=== PATIENT | male | born 1935 | race Caucasian/White ===

== ENCOUNTER → 2017-01-15 | Outpatient (REF) | payer BC ==
[~2017-01-15] MED LIST: /AUGM25TA PO; ATEN50TA2 PO
== END ==
LOC: M LABDRAWP 10:54
PROVIDERS: ATTEND Urology
DX: C61 Malignant neoplasm of prostate (principal)

== ENCOUNTER → 2017-01-15 | Outpatient (REF) | payer BC ==
[2017-01-15 11:07] LABS: BASO % 0.4 % (0.0-1.0); EOS # 0.2 K/mm3 (0.0-0.50); EOS % 3.2 % (0.0-3.0); LARGE UNSTAINED CELL # 0.1 K/mm3 (0.0-0.4); LARGE UNSTAINED CELL % 1.8 % (0.0-4.0); LYMPH # 1.1 K/mm3 (1.5-4.5); LYMPH % 14.2 % (24.0-44.0); MEAN CORPUSCULAR HGB CONC 33.2 g/dl (32.0-36.5); MEAN CORPUSCULAR VOLUME 96.6 fl (80.0-96.0); MONO # 0.5 K/mm3 (0.0-0.8); MONO % 6.8 % (0.0-5.0); NEUTROPHILS # 5.2 K/mm3 (1.8-7.7); NEUTROPHILS % 73.6 % (36.0-66.0); PLATELET COUNT, AUTOMATED 278 k/mm3 (150-450); RED CELL DISTRIBUTION WIDTH 13.4 % (11.5-14.5); WHITE BLOOD COUNT 7.1 K/mm3 (4.0-10.0)
[2017-01-15 11:28] LABS: ALBUMIN 3.6 GM/DL (3.2-5.2); ALBUMIN/GLOBULIN RATIO 1.16 (1.00-1.93); ALKALINE PHOSPHATASE 107 U/L (45-117); ALT/SGPT 33 U/L (12-78); ANION GAP 7 MEQ/L (8-16); AST/SGOT 29 U/L (15-37); BILIRUBIN,TOTAL 0.5 MG/DL (0.2-1.0); BLOOD UREA NITROGEN 22 MG/DL (7-18); CALCIUM LEVEL 9.3 MG/DL (8.8-10.2); CARBON DIOXIDE LEVEL 27 MEQ/L (21-32); CHLORIDE LEVEL 107 MEQ/L (98-107); CHOLESTEROL LEVEL 127 MG/DL (<200); GLOMERULAR FILTRATION RATE > 60.0 (>42); GLUCOSE, FASTING 103 MG/DL (83-110); POTASSIUM SERUM 4.7 MEQ/L (3.5-5.1); SODIUM LEVEL 141 MEQ/L (136-145); TOTAL PROTEIN 6.7 GM/DL (6.4-8.2); TRIGLYCERIDES LEVEL 52 MG/DL (<150)
[2017-01-17 00:07] LABS: BETA 2 MICROGLOBULIN 2.1 mg/L (0.6-2.4); FREE KAPPA LIGHT CHAINS SERUM 14.08 mg/L (3.30-19.40); FREE LAMBDA LIGHT CHAINS SERUM 55.26 mg/L (5.71-26.30); KAPPA/LAMBDA RATIO SERUM 0.25 (0.26-1.65)
== END ==
LOC: M SFHCPLAZ 08:21
PROVIDERS: ATTEND Family Medicine
DX: D47.2 Monoclonal gammopathy (principal); N18.3 Chronic kidney disease, stage 3 (moderate); R73.01 Impaired fasting glucose; E78.5 Hyperlipidemia, unspecified

== ENCOUNTER → 2017-01-22 | Outpatient (CLI) | payer BC ==
--- NOTE | 2017-01-23 07:27 | REP ---
Clinical: Prostate cancer. Technique: PA and lateral. Comparison: 10/09/2011. Findings: Mediastinum and cardiac silhouette are stable. Chronic changes primarily involving the right upper lung zone and left lower lung zone are suggested and similar to prior examination. No obvious, discrete, acute consolidation, effusion, or pneumothorax. Skeletal structures are intact and relatively normal for age. Impression: Chronic-appearing changes primarily involving the right upper lung zone and right lower lung zone. If the patient remains symptomatic consider chest CT for further investigation. Signed by Jose Hernandez MD 01/23/2017 07:18 A
--- NOTE | 2017-01-23 07:28 | REP ---
Clinical: Prostate cancer with pain . Technique: Frontal view of the chest with multiple views of the right hemithorax. Findings: Frontal view of the chest demonstrates no acute cardiopulmonary process. Multiple views of the right hemithorax demonstrates no obvious acute rib fracture or pathology. Impression: Normal right rib series Signed by Jose Hernandez MD 01/23/2017 07:19 A
== END ==
LOC: M RAD 09:45
PROVIDERS: ATTEND Family Medicine
DX: C61 Malignant neoplasm of prostate (principal)

== ENCOUNTER → 2017-07-17 | Outpatient (REF) | payer MEDICARE ==
[2017-07-17 10:23] LABS: BASO % 0.5 % (0.0-1.0); EOS # 0.1 10^3/uL (0.0-0.50); EOS % 1.8 % (0.0-3.0); IMMATURE GRANULOCYTE % 0.3 % (0-0); LYMPH # 0.9 10^3/uL (1.5-4.5); LYMPH % 12.9 % (24.0-44.0); MEAN CORPUSCULAR HGB CONC 32.8 g/dl (32.0-36.5); MEAN CORPUSCULAR VOLUME 97.5 fl (80.0-96.0); MONO # 0.6 10^3/uL (0.0-0.8); MONO % 8.4 % (0.0-5.0); NEUTROPHILS # 5.1 10^3/uL (1.8-7.7); NEUTROPHILS % 76.1 % (36.0-66.0); PLATELET COUNT, AUTOMATED 305 10^3/uL (150-450); WHITE BLOOD COUNT 6.7 10^3/uL (4.0-10.0)
[2017-07-17 10:47] LABS: ALBUMIN 3.5 GM/DL (3.2-5.2); ALBUMIN/GLOBULIN RATIO 1.09 (1.00-1.93); ALKALINE PHOSPHATASE 90 U/L (45-117); ALT/SGPT 25 U/L (12-78); ANION GAP 8 MEQ/L (8-16); AST/SGOT 17 U/L (7-37); BILIRUBIN,TOTAL 0.8 MG/DL (0.2-1.0); BLOOD UREA NITROGEN 22 MG/DL (7-18); CALCIUM LEVEL 9.5 MG/DL (8.8-10.2); CARBON DIOXIDE LEVEL 29 MEQ/L (21-32); CHLORIDE LEVEL 104 MEQ/L (98-107); CREATININE FOR GFR 1.28 MG/DL (0.70-1.30); FREE T4 0.91 NG/DL (0.76-1.46); GLOMERULAR FILTRATION RATE 57.6 (>35); GLUCOSE, FASTING 110 MG/DL (83-110); POTASSIUM SERUM 4.6 MEQ/L (3.5-5.1); SODIUM LEVEL 141 MEQ/L (136-145); TOTAL PROTEIN 6.7 GM/DL (6.4-8.2)
[2017-07-18 11:19] LABS: ALBUMIN 3.83 GM/DL (3.29-5.55); ALBUMIN % 57.1 % (55.8-66.1)
== END ==
LOC: M SFHCPLAZ 07:53
PROVIDERS: ATTEND Family Medicine
DX: D47.2 Monoclonal gammopathy (principal); E78.5 Hyperlipidemia, unspecified; R73.01 Impaired fasting glucose

== ENCOUNTER → 2017-07-25 | Outpatient (CLI) | payer MEDICARE | LOC: M LAB 08:06 | PROVIDERS: ATTEND Urology | DX: C61 Malignant neoplasm of prostate (principal) ==

== ENCOUNTER → 2018-03-18 | Outpatient (REF) | payer MEDICARE ==
[2018-03-18 12:26] LABS: BASO % 0.4 % (0.0-1.0); EOS # 0.2 10^3/uL (0.0-0.50); HEMATOCRIT 45.2 % (42.0-52.0); HEMOGLOBIN 15.2 g/dl (13.5-17.5); IMMATURE GRANULOCYTE % 0.1 % (0-3.0); LYMPH # 1.3 10^3/uL (1.5-4.5); LYMPH % 17.9 % (24.0-44.0); MEAN CORPUSCULAR HEMOGLOBIN 32.4 pg (27.0-33.0); MEAN CORPUSCULAR HGB CONC 33.6 g/dl (32.0-36.5); MEAN CORPUSCULAR VOLUME 96.4 fl (80.0-96.0); MONO # 0.7 10^3/uL (0.0-0.8); MONO % 9.7 % (0.0-5.0); NEUTROPHILS # 5.1 10^3/uL (1.8-7.7); NEUTROPHILS % 69.9 % (36.0-66.0); PLATELET COUNT, AUTOMATED 280 10^3/uL (150-450); RED BLOOD COUNT 4.69 10^6/uL (4.30-6.10); RED CELL DISTRIBUTION WIDTH 13.2 % (11.5-14.5); WHITE BLOOD COUNT 7.3 10^3/uL (4.0-10.0)
[2018-03-18 12:39] LABS: APPEARANCE, URINE CLEAR (CLEAR); BACTERIA, URINE AUTO NEGATIVE (NEGATIVE); BILIRUBIN, URINE AUTO NEGATIVE (NEGATIVE); BLOOD, URINE BLOOD NEGATIVE (NEGATIVE); COLOR, URINE YELLOW (YELLOW); GLUCOSE, URINE (UA) AUTO NEGATIVE (NEGATIVE); KETONE, URINE AUTO TRACE mg/dL (NEGATIVE); LEUKOCYTE ESTERASE, URINE AUTO NEGATIVE (NEGATIVE); MUCUS, URINE SMALL (NEGATIVE); NITRITE, URINE AUTO NEGATIVE (NEGATIVE); PROTEIN, URINE AUTO NEGATIVE (NEGATIVE); RBC, URINE AUTO 0 /HPF (0-3); SPECIFIC GRAVITY URINE AUTO 1.021 (1.002-1.035); SQUAMOUS EPITHELIAL CELL UR AU 0 /HPF (0-6); UROBILINOGEN, URINE AUTO 0.2 mg/dL (0.0-2.0); WBC, URINE AUTO 0 /HPF (0-3)
[2018-03-18 12:56] LABS: ALBUMIN 3.7 GM/DL (3.2-5.2); ALBUMIN/GLOBULIN RATIO 1.16 (1.00-1.93); ALKALINE PHOSPHATASE 106 U/L (45-117); ALT/SGPT 26 U/L (12-78); ANION GAP 9 MEQ/L (8-16); AST/SGOT 23 U/L (7-37); BLOOD UREA NITROGEN 20 MG/DL (7-18); CALCIUM LEVEL 9.2 MG/DL (8.8-10.2); CARBON DIOXIDE LEVEL 29 MEQ/L (21-32); CHLORIDE LEVEL 103 MEQ/L (98-107); CHOLESTEROL LEVEL 131 MG/DL (<200); CHOLESTEROL RISK RATIO 3.275 (<5); CREATININE FOR GFR 1.21 MG/DL (0.70-1.30); GLOMERULAR FILTRATION RATE > 60.0 (>35); GLUCOSE, FASTING 93 MG/DL (70-100); HDL CHOLESTEROL 40 MG/DL (>40); NON-HDL-C 91 MG/DL; POTASSIUM SERUM 4.4 MEQ/L (3.5-5.1); SODIUM LEVEL 141 MEQ/L (136-145); TOTAL PROTEIN 6.9 GM/DL (6.4-8.2); TRIGLYCERIDES LEVEL 105 MG/DL (<150)
[2018-03-18 13:32] LABS: MAU/CREAT RATIO 3.7 MCG/MG (0.0-30.0)
[2018-03-18 16:36] LABS: ESTIMATED AVERAGE GLUCOSE 140 MG/DL (60-110); HEMOGLOBIN A1c 6.5 %
[2018-03-20 08:11] LABS: INSULIN LEVEL 5.2 uIU/mL (2.6-24.9)
[2018-03-20 08:11] LABS: FREE KAPPA LIGHT CHAINS SERUM 12.1 mg/L (3.3-19.4); FREE LAMBDA LIGHT CHAINS SERUM 56.3 mg/L (5.7-26.3); FREE LAMBDA LIGHT CHAINS URINE 9.65 mg/L (0.24-6.66); KAPPA/LAMBDA RATIO SERUM 0.21 (0.26-1.65); KAPPA/LAMBDA RATIO URINE 3.33 (2.04-10.37)
== END ==
LOC: M SFHCPLAZ 07:56
DX: D47.2 Monoclonal gammopathy (principal); N18.3 Chronic kidney disease, stage 3 (moderate); R73.01 Impaired fasting glucose; E78.5 Hyperlipidemia, unspecified
CPT/HCPCS: 83525

== ENCOUNTER → 2018-07-28 | Outpatient (CLI) | payer MEDICARE ==
[2018-07-28 07:38] LABS: PROSTATIC SPECIFIC AG MONITOR 2.1 NG/ML (< 4.0)
== END ==
LOC: M LAB 06:31
DX: C61 Malignant neoplasm of prostate (principal)
CPT/HCPCS: 84153

== ENCOUNTER → 2018-09-23 | Outpatient (REF) | payer MEDICARE ==
[2018-09-23 10:53] LABS: BASO % 0.4 % (0.0-1.0); EOS # 0.2 10^3/uL (0.0-0.50); EOS % 2.2 % (0.0-3.0); HEMATOCRIT 45.9 % (42.0-52.0); HEMOGLOBIN 15.2 g/dl (13.5-17.5); LYMPH # 1.1 10^3/uL (1.5-4.5); LYMPH % 14.9 % (24.0-44.0); MEAN CORPUSCULAR HGB CONC 33.1 g/dl (32.0-36.5); MEAN CORPUSCULAR VOLUME 96.6 fl (80.0-96.0); MONO # 0.7 10^3/uL (0.0-0.8); MONO % 9.1 % (0.0-5.0); NEUTROPHILS # 5.4 10^3/uL (1.8-7.7); NEUTROPHILS % 73.1 % (36.0-66.0); PLATELET COUNT, AUTOMATED 300 10^3/uL (150-450); RED BLOOD COUNT 4.75 10^6/uL (4.30-6.10); WHITE BLOOD COUNT 7.4 10^3/uL (4.0-10.0)
[2018-09-23 11:00] LABS: ALBUMIN 3.8 GM/DL (3.2-5.2); ALT/SGPT 31 U/L (12-78); BILIRUBIN,TOTAL 0.6 MG/DL (0.2-1.0); BLOOD UREA NITROGEN 24 MG/DL (7-18); CALCIUM LEVEL 9.5 MG/DL (8.8-10.2); CARBON DIOXIDE LEVEL 31 MEQ/L (21-32); CHLORIDE LEVEL 102 MEQ/L (98-107); CREATININE FOR GFR 1.21 MG/DL (0.70-1.30); FREE T4 0.95 NG/DL (0.76-1.46); GLOMERULAR FILTRATION RATE > 60.0 (>35); GLUCOSE, FASTING 119 MG/DL (70-100); POTASSIUM SERUM 4.7 MEQ/L (3.5-5.1); SODIUM LEVEL 138 MEQ/L (136-145); TOTAL PROTEIN 6.8 GM/DL (6.4-8.2)
[2018-09-23 11:34] LABS: HEMOGLOBIN A1c 6.6 %
[2018-09-23 11:53] LABS: TOTAL 25(OH) VITAMIN D 34.4 NG/ML (30.0-100.0)
[2018-09-23 11:54] LABS: PTH INTACT 48.4 PG/ML (18.5-88.0)
[2018-09-25 12:50] LABS: ALBUMIN 3.84 GM/DL (3.29-5.55); ALBUMIN % 56.4 % (55.8-66.1); ALPHA-1-GLOBULIN % 5.4 % (2.9-4.9); ALPHA-1-GLOBULINS 0.37 GM/DL (0.17-0.41); ALPHA-2-GLOBULINS % 13.3 % (7.1-11.8); BETA-1-GLOBULINS 0.41 GM/DL (0.28-0.60); BETA-2-GLOBULINS 0.37 GM/DL (0.19-0.55); BETA-2-GLOBULINS % 5.4 % (3.2-6.5); GAMMA GLOBULIN % 13.5 % (11.1-18.8); GAMMA GLOBULINS 0.92 GM/DL (0.65-1.58)
== END ==
LOC: M SFHCPLAZ 07:54
PROVIDERS: ATTEND Family Medicine
DX: D47.2 Monoclonal gammopathy (principal); R73.01 Impaired fasting glucose; E78.5 Hyperlipidemia, unspecified; E55.9 Vitamin D deficiency, unspecified

== ENCOUNTER → 2019-02-02 | Outpatient (CLI) | payer MEDICARE | LOC: M LAB 06:27 | PROVIDERS: ATTEND Physician Assistant | DX: C61 Malignant neoplasm of prostate (principal) ==

== ENCOUNTER → 2019-04-28 | Outpatient (REF) | payer MEDICARE ==
[2019-04-28 10:51] LABS: BASO % 0.3 % (0.0-1.0); EOS # 0.1 10^3/uL (0.0-0.5); EOS % 1.9 % (0.0-3.0); HEMATOCRIT 43.5 % (42.0-52.0); HEMOGLOBIN 14.7 g/dl (13.5-17.5); LYMPH # 1.1 10^3/uL (1.5-5.0); LYMPH % 15.6 % (24.0-44.0); MEAN CORPUSCULAR HEMOGLOBIN 33.1 pg (27.0-33.0); MEAN CORPUSCULAR HGB CONC 33.8 g/dl (32.0-36.5); MONO # 0.6 10^3/uL (0.0-0.8); MONO % 9.3 % (0.0-5.0); NEUTROPHILS # 4.9 10^3/uL (1.5-8.5); NEUTROPHILS % 72.6 % (36.0-66.0); PLATELET COUNT, AUTOMATED 279 10^3/uL (150-450); RED BLOOD COUNT 4.44 10^6/uL (4.30-6.10); WHITE BLOOD COUNT 6.8 10^3/uL (4.0-10.0)
[2019-04-28 10:52] LABS: APPEARANCE, URINE CLEAR (CLEAR); BACTERIA, URINE AUTO NEGATIVE (NEGATIVE); BILIRUBIN, URINE AUTO NEGATIVE (NEGATIVE); BLOOD, URINE BLOOD NEGATIVE (NEGATIVE); COLOR, URINE YELLOW (YELLOW); GLUCOSE, URINE (UA) AUTO NEGATIVE (NEGATIVE); KETONE, URINE AUTO NEGATIVE (NEGATIVE); LEUKOCYTE ESTERASE, URINE AUTO NEGATIVE (NEGATIVE); NITRITE, URINE AUTO NEGATIVE (NEGATIVE); PROTEIN, URINE AUTO NEGATIVE (NEGATIVE); RBC, URINE AUTO 2 /HPF (0-3); SPECIFIC GRAVITY URINE AUTO 1.013 (1.002-1.035); SQUAMOUS EPITHELIAL CELL UR AU 0 /HPF (0-6); UROBILINOGEN, URINE AUTO 0.2 mg/dL (0.0-2.0); WBC, URINE AUTO 0 /HPF (0-3)
[2019-04-28 10:59] LABS: ALBUMIN 3.7 GM/DL (3.2-5.2); ALT/SGPT 27 U/L (12-78); BILIRUBIN,TOTAL 0.7 MG/DL (0.2-1.0); BLOOD UREA NITROGEN 17 MG/DL (7-18); CALCIUM LEVEL 9.6 MG/DL (8.8-10.2); CARBON DIOXIDE LEVEL 29 MEQ/L (21-32); CHLORIDE LEVEL 105 MEQ/L (98-107); CREATININE FOR GFR 1.14 MG/DL (0.70-1.30); GLOMERULAR FILTRATION RATE > 60.0 (>35); GLUCOSE, FASTING 115 MG/DL (70-100); POTASSIUM SERUM 4.6 MEQ/L (3.5-5.1); SODIUM LEVEL 140 MEQ/L (136-145); TOTAL PROTEIN 6.4 GM/DL (6.4-8.2)
[2019-04-28 11:26] LABS: CREATININE, URINE 98.4 MG/DL; MALB URINE SIEMENS 7.8 MG/L; MAU/CREAT RATIO 7.9 MCG/MG (0.0-30.0)
[2019-04-30 00:08] LABS: FREE KAPPA LIGHT CHAINS URINE 21.2 mg/L (1.35-24.19); FREE LAMBDA LIGHT CHAINS SERUM 54.3 mg/L (5.7-26.3); FREE LAMBDA LIGHT CHAINS URINE 10.6 mg/L (0.24-6.66); KAPPA/LAMBDA RATIO SERUM 0.24 (0.26-1.65)
== END ==
LOC: M SFHCPLAZ 07:57
PROVIDERS: ATTEND Family Medicine
DX: D47.2 Monoclonal gammopathy (principal); R73.01 Impaired fasting glucose

== ENCOUNTER → 2019-07-31 | Outpatient (CLI) | payer MEDICARE | LOC: M LAB 06:45 | PROVIDERS: ATTEND Nurse Practitioner Family | DX: C61 Malignant neoplasm of prostate (principal) ==

== ENCOUNTER → 2019-10-19 | Outpatient (CLI) | payer MEDICARE ==
[2019-10-19 07:06] LABS: BASO % 0.5 % (0.0-1.0); EOS # 0.2 10^3/uL (0.0-0.5); EOS % 2.7 % (0.0-3.0); HEMATOCRIT 46.2 % (42.0-52.0); HEMOGLOBIN 15.3 g/dl (13.5-17.5); LYMPH # 1.3 10^3/uL (1.5-5.0); LYMPH % 17.4 % (24.0-44.0); MEAN CORPUSCULAR HEMOGLOBIN 32.7 pg (27.0-33.0); MEAN CORPUSCULAR HGB CONC 33.1 g/dl (32.0-36.5); MEAN CORPUSCULAR VOLUME 98.7 fl (80.0-96.0); MONO # 0.6 10^3/uL (0.0-0.8); MONO % 8.2 % (0.0-5.0); NEUTROPHILS # 5.3 10^3/uL (1.5-8.5); NEUTROPHILS % 70.9 % (36.0-66.0); PLATELET COUNT, AUTOMATED 304 10^3/uL (150-450); RED BLOOD COUNT 4.68 10^6/uL (4.30-6.10); WHITE BLOOD COUNT 7.5 10^3/uL (4.0-10.0)
[2019-10-19 07:31] LABS: ALBUMIN 3.7 GM/DL (3.2-5.2); ALT/SGPT 30 U/L (12-78); BILIRUBIN,TOTAL 0.6 MG/DL (0.2-1.0); BLOOD UREA NITROGEN 22 MG/DL (7-18); CALCIUM LEVEL 9.5 MG/DL (8.8-10.2); CARBON DIOXIDE LEVEL 29 MEQ/L (21-32); CHLORIDE LEVEL 104 MEQ/L (98-107); CHOLESTEROL LEVEL 139 MG/DL (<200); CREATININE FOR GFR 1.28 MG/DL (0.70-1.30); FREE T4 0.81 NG/DL (0.76-1.46); GLOMERULAR FILTRATION RATE 57.3 (>35); GLUCOSE, FASTING 134 MG/DL (70-100); HDL CHOLESTEROL 41 MG/DL (>40); LDL CHOLESTEROL 75 MG/DL (<100); NON-HDL-C 98 MG/DL; POTASSIUM SERUM 4.7 MEQ/L (3.5-5.1); SODIUM LEVEL 138 MEQ/L (136-145); TOTAL PROTEIN 7.1 GM/DL (6.4-8.2); TRIGLYCERIDES LEVEL 113 MG/DL (<150)
[2019-10-19 08:01] LABS: HEMOGLOBIN A1c 6.2 %
[2019-10-19 09:30] LABS: PTH INTACT 51.6 PG/ML (18.5-88.0); TOTAL 25(OH) VITAMIN D 40.2 NG/ML (30.0-100.0)
[2019-10-20 11:35] LABS: ALBUMIN % 56.1 % (55.8-66.1); ALPHA-1-GLOBULIN % 5.2 % (2.9-4.9); ALPHA-2-GLOBULINS % 13.2 % (7.1-11.8); BETA-1-GLOBULINS % 5.9 % (4.7-7.2); BETA-2-GLOBULINS % 5.1 % (3.2-6.5); GAMMA GLOBULIN % 14.5 % (11.1-18.8)
[2019-10-20 11:36] LABS: ALBUMIN 3.98 GM/DL (3.29-5.55); ALPHA-1-GLOBULINS 0.37 GM/DL (0.17-0.41); ALPHA-2-GLOBULINS 0.94 GM/DL (0.42-0.99); BETA-1-GLOBULINS 0.42 GM/DL (0.28-0.60); BETA-2-GLOBULINS 0.36 GM/DL (0.19-0.55); GAMMA GLOBULINS 1.03 GM/DL (0.65-1.58)
== END ==
LOC: M LAB 06:15
PROVIDERS: ATTEND Family Medicine
DX: R73.01 Impaired fasting glucose (principal); D47.2 Monoclonal gammopathy; E78.5 Hyperlipidemia, unspecified; C61 Malignant neoplasm of prostate; N18.3 Chronic kidney disease, stage 3 (moderate)

== ENCOUNTER → 2019-10-19 | Outpatient (CLI) | payer MEDICARE | LOC: M LAB 06:17 | PROVIDERS: ATTEND Nurse Practitioner Family | DX: C61 Malignant neoplasm of prostate (principal) ==

== ENCOUNTER → 2020-03-02 | Outpatient (CLI) | payer MEDICARE ==
[2020-03-02 07:03] LABS: BASO % 0.4 % (0.0-1.0); EOS # 0.3 10^3/uL (0.0-0.5); HEMATOCRIT 47.4 % (42.0-52.0); HEMOGLOBIN 15.9 g/dl (13.5-17.5); LYMPH # 1.5 10^3/uL (1.5-5.0); LYMPH % 16.4 % (24.0-44.0); MEAN CORPUSCULAR HEMOGLOBIN 32.5 pg (27.0-33.0); MEAN CORPUSCULAR HGB CONC 33.5 g/dl (32.0-36.5); MEAN CORPUSCULAR VOLUME 96.9 fl (80.0-96.0); MONO # 0.8 10^3/uL (0.0-0.8); MONO % 8.9 % (0.0-5.0); NEUTROPHILS # 6.4 10^3/uL (1.5-8.5); NEUTROPHILS % 71.1 % (36.0-66.0); PLATELET COUNT, AUTOMATED 264 10^3/uL (150-450); RED BLOOD COUNT 4.89 10^6/uL (4.30-6.10)
[2020-03-02 07:44] LABS: ALBUMIN 3.7 GM/DL (3.2-5.2); ALT/SGPT 33 U/L (12-78); BILIRUBIN,TOTAL 0.8 MG/DL (0.2-1.0); BLOOD UREA NITROGEN 20 MG/DL (7-18); CALCIUM LEVEL 9.5 MG/DL (8.8-10.2); CARBON DIOXIDE LEVEL 28 MEQ/L (21-32); CHLORIDE LEVEL 104 MEQ/L (98-107); CREATININE FOR GFR 1.25 MG/DL (0.70-1.30); FREE T4 0.91 NG/DL (0.76-1.46); GLOMERULAR FILTRATION RATE 58.9 (>35); GLUCOSE, FASTING 115 MG/DL (70-100); POTASSIUM SERUM 4.6 MEQ/L (3.5-5.1); SODIUM LEVEL 138 MEQ/L (136-145)
[2020-03-02 11:08] LABS: THYROID PEROXIDASE ANTIBODY < 28.0 U/ML (<60.0)
[2020-03-04 04:07] LABS: FREE KAPPA LIGHT CHAINS SERUM 13.2 mg/L (3.3-19.4); FREE KAPPA LIGHT CHAINS URINE 13.89 mg/L (0.63-113.79); FREE LAMBDA LIGHT CHAINS SERUM 72.9 mg/L (5.7-26.3); FREE LAMBDA LIGHT CHAINS URINE 10.4 mg/L (0.47-11.77); INSULIN LEVEL 13.9 uIU/mL (2.6-24.9); KAPPA/LAMBDA RATIO SERUM 0.18 (0.26-1.65); KAPPA/LAMBDA RATIO URINE 1.34 (1.03-31.76)
== END ==
LOC: M LAB 06:15
PROVIDERS: ATTEND Family Medicine
DX: D47.2 Monoclonal gammopathy (principal); R73.01 Impaired fasting glucose; E78.5 Hyperlipidemia, unspecified

== ENCOUNTER → 2020-04-26 | Outpatient (CLI) | payer MEDICARE | LOC: M LAB 06:19 | PROVIDERS: ATTEND Urology | DX: C61 Malignant neoplasm of prostate (principal) ==

== ENCOUNTER 2020-07-07 14:34 | Inpatient (IN) | payer MEDICARE ==
[~2020-07-07] VITALS: Ht 177.8 cm; Wt 82.1 kg
[2020-07-07] MEDS ORDERED: ATEN50TA2 PO (14:52)
[2020-07-07] MEDS ORDERED: ATOR1TAB21 PO (14:52)
--- NOTE | 2020-07-07 15:34 | REPVR ---
PROCEDURE INFORMATION: Exam: CT Head Without Contrast Exam date and time: 07/07/2020 3:17 PM Age: 85 years old Clinical indication: Visual disturbance; Additional info: TIA TECHNIQUE: Imaging protocol: Computed tomography of the head without contrast. Radiation optimization: All CT scans at this facility use at least one of these dose optimization techniques: automated exposure control; mA and/or kV adjustment per patient size (includes targeted exams where dose is matched to clinical indication); or iterative reconstruction. COMPARISON: No relevant prior studies available. FINDINGS: Brain: Mild hypoattenuating foci are noted in the anterior lateral ventricular periventricular white matter bilaterally. No intracranial hemorrhage. No mass or acute cortical infarction identified. Cerebral ventricles: Prominence of the ventricular system and subarachnoid spaces is consistent with the patient's age of 85 years. Bones/joints: No acute abnormality. No acute fracture. Paranasal sinuses: Visualized sinuses are unremarkable. No fluid levels. Mastoid air cells: Inferior right mastoid partial effusion. Orbital cavity: Bilateral prior cataract surgery. Vasculature: Atherosclerotic calcifications are present involving the carotid artery siphons bilaterally. Soft tissues: Unremarkable. IMPRESSION: 1. Age appropriate supratentorial and infratentorial atrophy. 2. 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 3. No acute intracranial abnormality identified. 4. Inferior right mastoid partial effusion. Electronically signed by: Neel Lee On 07/07/2020 15:34:17 PM
[2020-07-07 15:47] LABS: BASO % 0.5 % (0.0-1.0); EOS # 0.1 10^3/uL (0.0-0.5); EOS % 1.6 % (0.0-3.0); HEMATOCRIT 45.5 % (42.0-52.0); HEMOGLOBIN 15.1 g/dl (13.5-17.5); LYMPH # 1.1 10^3/uL (1.5-5.0); LYMPH % 14.4 % (24.0-44.0); MEAN CORPUSCULAR HEMOGLOBIN 32.5 pg (27.0-33.0); MEAN CORPUSCULAR HGB CONC 33.2 g/dl (32.0-36.5); MEAN CORPUSCULAR VOLUME 97.8 fl (80.0-96.0); MONO # 0.8 10^3/uL (0.0-0.8); MONO % 10.3 % (0.0-5.0); NEUTROPHILS # 5.5 10^3/uL (1.5-8.5); NEUTROPHILS % 72.8 % (36.0-66.0); PLATELET COUNT, AUTOMATED 294 10^3/uL (150-450); RED BLOOD COUNT 4.65 10^6/uL (4.30-6.10); WHITE BLOOD COUNT 7.5 10^3/uL (4.0-10.0)
[2020-07-07 16:01] LABS: PARTIAL THROMBOPLASTIN TIME 29.1 SECONDS (24.2-38.5); PROTHROMBIN TIME 13.4 SECONDS (12.5-14.3)
--- NOTE | 2020-07-07 16:05 | REP ---
INDICATION: TIA. COMPARISON: 01/22/2017. TECHNIQUE: SINGLE PORTABLE AP VIEW OF THE CHEST WAS PERFORMED. FINDINGS: There is no acute infiltrate or pulmonary edema. Scattered fibrotic scarring is seen bilaterally. The heart appears very mildly enlarged. There is calcification and tortuosity of the thoracic aorta. The mediastinal silhouette is unchanged. IMPRESSION: NO ACUTE PULMONARY DISEASE. <Electronically signed by Jason Anne > 07/07/20 [id number]
[2020-07-07 16:14] LABS: BLOOD UREA NITROGEN 19 MG/DL (7-18); CARBON DIOXIDE LEVEL 31 MEQ/L (21-32); CHLORIDE LEVEL 105 MEQ/L (98-107); CK-MB VALUE MASS 4.1 NG/ML (<3.6); CPK CREATINE PHOSPHOKINASE 63 U/L (39-308); CREATININE FOR GFR 1.28 MG/DL (0.70-1.30); GLOMERULAR FILTRATION RATE 57.1 (>35); GLUCOSE, FASTING 135 MG/DL (70-100); MB/CK RELATIVE INDEX 6.51 (< OR =4); POTASSIUM SERUM 4.8 MEQ/L (3.5-5.1); SODIUM LEVEL 139 MEQ/L (136-145); TROPONIN I < 0.02 NG/ML (< 0.10)
[2020-07-07] MEDS ORDERED: MOM 30ML SUSPENSION UDC PO PRN (16:45)
--- NOTE | 2020-07-07 17:37 | HPEPDOC ---
General Date of Admission 07/07/20 Date of Service: Jul 07, 2020 Chief Complaint The patient is a 85-year-old male admitted with a reason for visit of Vision Changes. Source: Patient, RN/MD History of Present Illness 85 year old male from home presented to ED for 7 days history of recurrent vision abnormality. He reported that he noticed that suddenly while he is sitting in the kitchen chair his vision would go black for a second then come right back. It has occurred several times in the last few days at least twice a day in the afternoons. These episodes are associated with a pounding sensation in his head and a sesation of hot flush on the face. He has not noticed any palpitation or nay nausea or diaphoresis with the episodes. In the ED EKG showed atrial flutter with controlled rate and Telemetry showed episodes fo afib with rates to 130s when he was exerting like sitting up when i was doing his physical exam of the back and then would go right back into flutter at rate of 70s when he relaxed back into the bed. He never complained of any palpitation during these episodes. 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 BOTELLO 11/03 Family History MOTHER: HYPERTENSION SIBLINGS: SISTER SKIN CA Social History * Smoker: Denies Alcohol: Denies Drugs: denies A-FIB/CHADSVASC A-FIB History Current/History of A-Fib/PAF?: No Review of Systems Constitutional: Denies: Chills, Fever, Night Sweats Eyes: Reports: Vision change; Denies: Pain ENT: Reports: Other Symptoms (buzzing inthe head); Denies: Head Aches, Ear Pain, Dysphagia Skin: Denies: Rash, Lesions, Breakdown Pulmonary: Denies: Dyspnea, Cough Cardiovascular: Denies: Chest Pain, Palpitations, Orthopnea, Paroxysmal Noc. Dyspnea, Lt Headedness Gastrointestinal: Denies: Nausea, Vomiting, Abdominal Pain, Diarrhea Genitourinary: Denies: Dysuria, Frequency, Incontinence, Retention Hematologic: Denies: Bruising, Bleeding Excessively Physical Examination General Exam: Positive: Alert, Cooperative, No Acute Distress Eye Exam: Positive: PERRLA, Conjunctiva & lids normal, EOMI; Negative: Sclera icteric ENT Exam: Positive: Atraumatic, Mucous membr. moist/pink, Pharynx Normal Neck Exam: Positive: Supple; Negative: JVD, thyromegaly Chest Exam: Positive: Clear to auscultation, Normal air movement Heart Exam: Positive: Irregular Rhythm, Normal S1, Normal S2, Other (rate varying tachy to normal); Negative: Gallops, Murmurs, Rubs Telemetry: Positive: Atrial fibrillation, Other Telemetry: (atrial flutter) Abdomen Exam: Positive: Normal bowel sounds, Soft; Negative: Tenderness, Hepatospenomegaly Extremity Exam: Positive: Normal pulses; Negative: Clubbing, Cyanosis, Edema Skin Exam: Positive: Nl turgor and temperature; Negative: Breakdown, Lesion Neuro Exam: Positive: Normal Gait, Normal Speech, Strength at 5/5 X4 ext, Normal Tone, Sensation Intact Psych Exam: Positive: Memory Intact, Oriented x 3 Vital Signs Vital Signs Date Time Temp Pulse Resp B/P (MAP) Pulse Ox O2 Delivery O2 Flow Rate FiO2 07/07/20 15:50 07/07/20 14:34 98.6 72 18 98 Room Air Laboratory Data Labs 24H Laboratory Tests 2 07/07/20 15:35: Immature Granulocyte % (Auto) 0.4, Neutrophils (%) (Auto) 72.8H, Lymphocytes (%) (Auto) 14.4L, Monocytes (%) (Auto) 10.3H, Eosinophils (%) (Auto) 1.6, Basophils (%) (Auto) 0.5, Neutrophils # (Auto) 5.5, Lymphocytes # (Auto) 1.1L, Monocytes # (Auto) 0.8, Eosinophils # (Auto) 0.1, Basophils # (Auto) 0.0, Nucleated Red Bl ood Cells % (auto) 0.0, Prothrombin Time 13.4, Prothromb Time International Ratio 1.00, Activated Partial Thromboplast Time 29.1, Anion Gap 3L, Glomerular Filtration Rate 57.1, Calcium Level 10.0, Total Creatine Kinase 63, Creatine Kinase MB 4.1H, Creatine Kinase MB Relative Index 6.51H, Troponin I < 0.02, Thyroid Stimulating Hormone (TSH) 4.460H CBC/BMP Laboratory Tests 07/07/20 15:35 Assessment/Plan 85 year old male from home presented to ED for 7 days history of recurrent vision abnormality. He reported that he noticed that suddenly while he is sitting in the kitchen chair his vision would go black for a second then come right back. It has occurred several times in the last few days at least twice a day in the afternoons. These episodes are associated with a buzzing sensation in his head and a sensation of hot flush on the face. He has not noticed any palpitation or nay nausea or diaphoresis with the episodes. In the ED EKG showed atrial flutter with controlled rate and Telemetry showed episodes fo afib with rates to 130s when he was exerting like sitting up when I was doing his physical exam of the back and then would go right back into flutter at rate of 70s when he relaxed back into the bed. He never complained of any palpitation during these episodes. He was admitted for Cardiac arrhythmias Afib/ aflutter Atrial flutter/ atrial fibrillation Seems mostly in Atrial flutter in controlled rate telemetry echo. cardiology consult will continue atenolol Vision changes intermittent I think this is probably due to cardiac arrhythmia. He may be having intermittent pauses or tachy casandra syndrome will monitor on telemetry. Orthostatic Bp Carotid US. HLD statin Plan / VTE VTE Prophylaxis Ordered?: Yes CURLY CURIEL MD Jul 07, 2020 16:46
--- NOTE | 2020-07-07 18:07 | REPVR ---
PROCEDURE INFORMATION: Exam: US Duplex Bilateral Extracranial Arteries Exam date and time: 07/07/2020 5:55 PM Age: 85 years old Clinical indication: Alteration of consciousness; Transient alteration of awareness; Additional info: TIA TECHNIQUE: Imaging protocol: Real-time Duplex ultrasound scan of the bilateral carotid and vertebral arteries combining barajas scale, color Doppler and spectral waveform analysis. Bilateral exam. COMPARISON: CT Head without contrast 07/07/2020 3:13 PM FINDINGS: Right common carotid artery: Proximal 106 cm/second. Mid 104 cm/second. Distal 80.8 cm/second. Right internal carotid artery: Right carotid bulb: Minimal plaque. 82.0 cm/second. Proximal 75.2 cm/second. Mid 69.0 cm/second. Distal 80.1 cm/second. Right ICA/CCA ratio: 0.99. Right external carotid artery: 117 cm/second. Right vertebral artery: 54.1 cm/second, antegrade. Left common carotid artery: Proximal 121 cm/second. Mid 110 cm/second. Distal 104 cm/second. Left internal carotid artery: Left carotid bulb: Minimal plaque. 83.9 cm/second. Proximal 52.3 cm/second. Mid 67.7 cm/second. Distal 82.2 cm/second. Left ICA/CCA ratio: 0.79. Left external carotid artery: 81.4 cm/second. Left vertebral artery: 45.3 cm/second, antegrade. IMPRESSION: No hemodynamically significant stenosis by peak systolic velocity criteria. REFERENCES: SRU CRITERIA. The degree of internal carotid artery stenosis is based on criteria defined by the Society of Radiologists in Ultrasound (SRU). Normal is no stenosis. Mild is less than 50% stenosis. Moderate is 50-69% stenosis. Severe is greater than 69% stenosis to near occlusion. Near occlusion is a markedly narrowed lumen. Total occlusion is no detectable patent lumen. Electronically signed by: Neel Lee On 07/07/2020 18:07:40 PM
[2020-07-07 20:37] VITALS: BP 139/85
[2020-07-07] MEDS: DOCUSATE SODIUM 100MG CAPSULE PO SCH (21:00)
[2020-07-08] VITALS (11 sets, daily range): BP systolic 116–155; BP diastolic 60–84
[2020-07-08] MEDS ORDERED: ATROPINE SULF 1MG/10ML SYRINGE (J0461) IV PRN (03:45)
[2020-07-08 05:29] LABS: BASO % 0.2 % (0.0-1.0); EOS # 0.1 10^3/uL (0.0-0.5); EOS % 1.6 % (0.0-3.0); HEMATOCRIT 41.7 % (42.0-52.0); HEMOGLOBIN 13.6 g/dl (13.5-17.5); LYMPH % 11.9 % (24.0-44.0); MEAN CORPUSCULAR HEMOGLOBIN 31.8 pg (27.0-33.0); MEAN CORPUSCULAR HGB CONC 32.6 g/dl (32.0-36.5); MEAN CORPUSCULAR VOLUME 97.4 fl (80.0-96.0); MONO # 0.8 10^3/uL (0.0-0.8); MONO % 9.8 % (0.0-5.0); NEUTROPHILS # 6.5 10^3/uL (1.5-8.5); PLATELET COUNT, AUTOMATED 277 10^3/uL (150-450); RED BLOOD COUNT 4.28 10^6/uL (4.30-6.10); WHITE BLOOD COUNT 8.6 10^3/uL (4.0-10.0)
[2020-07-08 05:49] LABS: BLOOD UREA NITROGEN 21 MG/DL (7-18); CARBON DIOXIDE LEVEL 28 MEQ/L (21-32); CHLORIDE LEVEL 105 MEQ/L (98-107); CREATININE FOR GFR 1.14 MG/DL (0.70-1.30); GLOMERULAR FILTRATION RATE > 60.0 (>35); GLUCOSE, FASTING 112 MG/DL (70-100); SODIUM LEVEL 137 MEQ/L (136-145)
[2020-07-08] MEDS ORDERED: LR 1,000 ML IV SCH (08:45)
[2020-07-08] MEDS: DOCUSATE SODIUM 100MG CAPSULE PO SCH ×2 (09:00→21:52)
[2020-07-08] MEDS ORDERED: atenoloL 50 MG TAB PO SCH (09:00)
[2020-07-08] MEDS ORDERED: ceFAZolin SOD 2 GM in IV 1 EA IV ONE (09:00)
[2020-07-08] MEDS ORDERED: ENOXAPARIN 30MG/0.3ML SYRINGE (J1650 PER 10MG) SC SCH (09:00)
[2020-07-08] MEDS: ATORVASTATIN 20 MG TAB PO SCH (09:06)
--- NOTE | 2020-07-08 12:09 | IPNPDOC ---
Subjective Date Seen The patient was seen on 07/08/20. Subjective Chief Complaint/HPI Patient had long Pauses overnight upto 4.96 secs when asleep, and about 3.7 secs when awake. He was also having episodes of tachycardia going up to 150s in atrial fibrillation. Most of the rhythm was aflutter with rates in the 40s to 50s when asleep and 70s when awake. Tachy casandra syndrome. Objective Physical Examination General Exam: Positive: Alert, Cooperative, No Acute Distress Eye Exam: Positive: PERRLA, Conjunctiva & lids normal, EOMI; Negative: Sclera icteric ENT Exam: Positive: Atraumatic, Mucous membr. moist/pink, Pharynx Normal Neck Exam: Positive: Supple; Negative: JVD, thyromegaly Chest Exam: Positive: Clear to auscultation, Normal air movement Heart Exam: Positive: Irregular Rhythm, Normal S1, Normal S2, Other (rate varying tachy to normal); Negative: Gallops, Murmurs, Rubs Telemetry: Positive: Atrial fibrillation, Other Telemetry: (atrial flutter) Abdomen Exam: Positive: Normal bowel sounds, Soft; Negative: Tenderness, Hepatospenomegaly Extremity Exam: Positive: Normal pulses; Negative: Clubbing, Cyanosis, Edema Skin Exam: Positive: Nl turgor and temperature; Negative: Breakdown, Lesion Neuro Exam: Positive: Normal Gait, Normal Speech, Strength at 5/5 X4 ext, Normal Tone, Sensation Intact Psych Exam: Positive: Memory Intact, Oriented x 3 Assessment /Plan Assessment 85 year old male from home presented to ED for 7 days history of recurrent vision abnormality. He reported that he noticed that suddenly while he is sitting in the kitchen chair his vision would go black for a second then come right back. It has occurred several times in the last few days at least twice a day in the afternoons. These episodes are associated with a buzzing sensation in his head and a sensation of hot flush on the face. He has not noticed any palpitation or nay nausea or diaphoresis with the episodes. In the ED EKG showed atrial flutter with controlled rate and Telemetry showed episodes fo afib with rates to 130s when he was exerting like sitting up when I was doing his physical exam of the back and then would go right back into flutter at rate of 70s when he relaxed back into the bed. He never complained of any palpitation during these episodes. He was admitted for Cardiac arrhythmias Afib/ aflutter Atrial flutter/ atrial fibrillation with long pauses Tachy- casandra syndrome Seems mostly in Atrial flutter in controlled rate some times goes up to 150s then he goes into atrial fibrillation. Long pauses of 3 to 5 secs in flutter rhythm overnight. Consulted Dr Christine Pacemaker today. Echo pending NPO, ancef 2 gm preop. Vision changes intermittent due to cardiac arrhythmias. Orthostatic Bp changes negative. HLD statin Plan/VTE VTE Prophylaxis Ordered?: Yes VS, I&O, 24H, Fishbone Vital Signs/I&O Vital Signs Date Time Temp Pulse Resp B/P (MAP) Pulse Ox O2 Delivery O2 Flow Rate FiO2 07/08/20 11:44 98.0 75 18 129/77 (94) 99 Room Air I&O- Last 24 Hours up to 6 AM 07/08/20 06:00 Intake Total 0 ml Output Total 400 ml Balance -400 ml Laboratory Data 24H LABS Laboratory Tests 2 07/07/20 15:35: Immature Granulocyte % (Auto) 0.4, Neutrophils (%) (Auto) 72.8H, Lymphocytes (%) (Auto) 14.4L, Monocytes (%) (Auto) 10.3H, Eosinophils (%) (Auto) 1.6, Basophils (%) (Auto) 0.5, Neutrophils # (Auto) 5.5, Lymphocytes # (Auto) 1.1L, Monocytes # (Auto) 0.8, Eosinophils # (Auto) 0.1, Basophils # (Auto) 0.0, Nucleated Red Blood Cells % (auto) 0.0, Prothrombin Time 13.4, Prothromb Time International Ratio 1.00, Activated Partial Thromboplast Time 29.1, Anion Gap 3L, Glomerular Filtration Rate 57.1, Calcium Level 10.0, Total Creatine Kinase 63, Creatine Kinase MB 4.1H, Creatine Kinase MB Relative Index 6.51H, Troponin I < 0.02, Thyroid Stimulating Hormone (TSH) 4.460H 07/07/20 16:21: Coronavirus (COVID-19)(PCR) NEGATIVE 07/08/20 04:56: Immature Granulocyte % (Auto) 0.5, Neutrophils (%) (Auto) 76.0H, Lymphocytes (%) (Auto) 11.9L, Monocytes (%) (Auto) 9.8H, Eosinophils (%) (Auto) 1.6, Basophils (%) (Auto) 0.2, Neutrophils # (Auto) 6.5, Lymphocytes # (Auto) 1.0L, Monocytes # (Auto) 0.8, Eosinophils # (Auto) 0.1, Basophils # (Auto) 0.0, Nucleated Red Blood Cells % (auto) 0.0, Anion Gap 4L, Glomerular Filtration Rate > 60.0, Calcium Level 9.0 CBC/BMP Laboratory Tests 07/07/20 15:35 07/08/20 04:56 CURLY CURIEL MD Jul 08, 2020 12:09
[2020-07-08] MEDS ORDERED: propofoL 200 MG/20 ML VIAL As Ordered ONE (12:33)
[2020-07-08] MEDS ORDERED: LIDOCAINE 2% 100MG/5ML SDV (FOR ANES.) As Ordered ONE (12:33)
[2020-07-08] MEDS ORDERED: fentaNYL 100 MCG/2 ML INJECTION (J3010) As Ordered ONE (12:33)
[2020-07-08] MEDS ORDERED: MIDAZOLAM INJ 2MG/2ML VIAL (J2250 PER 1MG) As Ordered ONE (12:33)
[2020-07-08] MEDS ORDERED: ONDANSETRON 4MG/2ML VIAL As Ordered ONE (12:33)
[2020-07-08] MEDS ORDERED: BACITRACIN PWD 50,000 UNITS VIAL As Ordered ONE (12:48)
[2020-07-08] MEDS ORDERED: LIDOCAINE 1% MDV 20ML VIAL As Ordered ONE (12:48)
[2020-07-08] MEDS ORDERED: ceFAZolin 2 GM/D5W 50 ML IV BAG (J0690 PER 500MG) As Ordered ONE (12:55)
[2020-07-08] MEDS ORDERED: ePHEDrine SULFATE 25 MG/5 ML(5MG/ML) SYRINGE As Ordered ONE (13:28)
[2020-07-08] MEDS ORDERED: ACETAMINOPHEN 650MG ER TAB (TYLENOL ARTHRITIS) PO PRN (14:30)
--- NOTE | 2020-07-08 14:55 | REP ---
INDICATION: Post pacemaker implant COMPARISON: 07/07/2020 TECHNIQUE: Portable AP view of the chest FINDINGS: Single lead pacemaker in satisfactory position. No evidence for pneumothorax. Mediastinum and cardiac silhouette are stable. Small amount of left basilar atelectasis with underlying chronic scarring noted. No definite effusion. IMPRESSION: Status post pacemaker. No pneumothorax. Suspected mild left basilar atelectasis with underlying chronic changes. <Electronically signed by Jose Hernandez > 07/08/20 [id number]
[2020-07-08] MEDS: ceFAZolin SOD 1 GM in D5W MINI-BAG PLUS 50 ML IV SCH ×2 (15:54→21:53)
[2020-07-08] MEDS: atenoloL 50 MG TAB PO SCH (15:56)
[2020-07-08] MEDS: DIGOXIN 0.125 MG TAB PO SCH (15:56)
[2020-07-08] MEDS ORDERED: SLF 3 ML SYR IV PRN (16:00)
[2020-07-08] MEDS ORDERED: ONDANSETRON 4MG/2ML VIAL IV PRN (17:15)
--- NOTE | 2020-07-08 21:29 | ECGEPIP ---
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
[2020-07-08] MEDS: SLF 3 ML SYR IV SCH (21:53)
[2020-07-09] VITALS: BP 108/55
[2020-07-09 04:00] VITALS: BP_SYST 121; BP_SYST 133; BP_DIAS 73; BP_DIAS 90
[2020-07-09 04:31] LABS: BASO % 0.3 % (0.0-1.0); EOS # 0.1 10^3/uL (0.0-0.5); EOS % 1.3 % (0.0-3.0); HEMATOCRIT 42.1 % (42.0-52.0); HEMOGLOBIN 13.8 g/dl (13.5-17.5); LYMPH # 1.1 10^3/uL (1.5-5.0); LYMPH % 12.7 % (24.0-44.0); MEAN CORPUSCULAR HEMOGLOBIN 32.1 pg (27.0-33.0); MEAN CORPUSCULAR HGB CONC 32.8 g/dl (32.0-36.5); MEAN CORPUSCULAR VOLUME 97.9 fl (80.0-96.0); MONO # 0.9 10^3/uL (0.0-0.8); MONO % 10.1 % (0.0-5.0); NEUTROPHILS # 6.8 10^3/uL (1.5-8.5); NEUTROPHILS % 75.3 % (36.0-66.0); PLATELET COUNT, AUTOMATED 281 10^3/uL (150-450)
[2020-07-09 04:50] LABS: CALCIUM LEVEL 8.9 MG/DL (8.8-10.2); CREATININE FOR GFR 1.3 MG/DL (0.70-1.30); GLOMERULAR FILTRATION RATE 56.1 (>35); POTASSIUM SERUM 4.3 MEQ/L (3.5-5.1)
[2020-07-09] MEDS: ceFAZolin SOD 1 GM in D5W MINI-BAG PLUS 50 ML IV SCH (05:31)
[2020-07-09] MEDS: SLF 3 ML SYR IV SCH ×2 (05:32→08:19)
[2020-07-09] MEDS: ATORVASTATIN 20 MG TAB PO SCH (08:18)
[2020-07-09 08:19] VITALS: BP 121/90
[2020-07-09] MEDS: DOCUSATE SODIUM 100MG CAPSULE PO SCH (08:19)
[2020-07-09] MEDS: DIGOXIN 0.125 MG TAB PO SCH (08:19)
[2020-07-09] MEDS: atenoloL 50 MG TAB PO SCH (08:19)
--- NOTE | 2020-07-09 08:22 | REP ---
INDICATION: Post pacemaker implant COMPARISON: 07/08/2020 TECHNIQUE: PA and lateral. FINDINGS: Single lead left-sided pacemaker in stable satisfactory position. Mediastinum and cardiac silhouette are stable. No obvious left sided pneumothorax identified. Lung hirsch demonstrate diffuse chronic stable changes primarily identified at the left base and subtle superimposed left lower lobe atelectasis cannot be excluded. No effusion. Skeletal structures intact. IMPRESSION: 1. Satisfactory appearance and placement to the single lead pacemaker. 2. Chronic pulmonary parenchymal changes. Subtle left basilar atelectasis cannot be excluded. No effusion or pneumothorax identified. <Electronically signed by Jose Hernandez > 07/09/20 [id number]
[2020-07-09] MEDS ORDERED: ELIQ2.5T PO (11:33)
[2020-07-09] MEDS ORDERED: DIGO0.123 PO (11:33)
[2020-07-09] MEDS ORDERED: XARE15TA PO (12:53)
--- NOTE | 2020-07-09 14:44 | ECGEPIP ---
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 No remarkable changes Electronically Signed on 07-09-2020 14:44:27 EST by Allen Edwards
--- NOTE | 2020-07-09 15:21 | ECGEPIP ---
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: REGINA : 1935 Requested By: Yonis Christine Order Number: [id number] Reading MD: Allen Edwards Measurements Intervals [place] Rate: 86 P: SD: 0 QRS: -28 QRSD: 107 T: 115 QT: 394 QTc: 473 Interpretive Statements ATRIAL FLUTTER/TACHYCARDIA BORDERLINE LEFT AXIS DEVIATION INCOMPLETE RIGHT BUNDLE BRANCH BLOCK POSSIBLE LATERAL MYOCARDIAL INFARCTION, OF INDETERMINATE AGE MINIMAL VOLTAGE CRITERIA FOR LVH, CONSIDER NORMAL VARIANT NONSPECIFIC ST & T-WAVE ABNORMALITY Compared to prior tracings in the system, no remarkable changes Electronically Signed on 07-09-2020 15:21:24 EST by Allen Edwards
--- NOTE | 2020-07-09 15:29 | ECGEPIP ---
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
[2020-07-09] MEDS ORDERED: APIXABAN 2.5 MG TAB (ELIQUIS) PO SCH (21:00)
--- NOTE | 2020-07-10 21:29 | DS.PDOC ---
Discharge Summary General Date of Admission Jul 07, 2020 at 17:22 Date of Discharge 07/09/20 Discharge Summary PROCEDURES PERFORMED DURING STAY: Dual Chamber pacemaker placement on 07/08/20 DISCHARGE DIAGNOSES: Tachy casandra syndrome s/p pacemaker Atrial flutter and atrial fibrillation HLD. COMPLICATIONS/CHIEF COMPLAINT: Vision Changes. HOSPITAL COURSE: 85 year old male from home presented to ED for 7 days history of recurrent vision abnormality. He reported that he noticed that suddenly while he is sitting in the kitchen chair his vision would go black for a second then come right back. It has occurred several times in the last few days at least twice a day in the afternoons. These episodes are associated with a buzzing sensation in his head and a sensation of hot flush on the face. He has not noticed any palpitation or nay nausea or diaphoresis with the episodes. In the ED EKG showed atrial flutter with controlled rate and Telemetry showed episodes fo afib with rates to 130s when he was exerting like sitting up when I was doing his physical exam of the back and then would go right back into flutter at rate of 70s when he relaxed back into the bed. He never complained of any palpitation during these episodes. He was admitted for Cardiac arrhythmias Afib/ aflutter Atrial flutter/ atrial fibrillation with long pauses Tachy- casandra syndrome s/p Pacemaker placement Digoxin, atenolol, xarelto. Vision changes intermittent due to cardiac arrhythmias. Orthostatic Bp changes negative. HLD statin Mildly elevated TSH outpatietn follow up. DISCHARGE MEDICATIONS: Please see below. ALLERGIES: Please see below. PHYSICAL EXAMINATION ON DISCHARGE: VITAL SIGNS: Please see below. General Exam: Positive: Alert, Cooperative, No Acute Distress Eye Exam: Positive: PERRLA, Conjunctiva & lids normal, EOMI; Negative: Sclera icteric ENT Exam: Positive: Atraumatic, Mucous membr. moist/pink, Pharynx Normal Neck Exam: Positive: Supple; Negative: JVD, thyromegaly Chest Exam: Positive: Clear to auscultation, Normal air movement Heart Exam: Positive: Irregular Rhythm, Normal S1, Normal S2, Other (rate varying tachy to normal); Negative: Gallops, Murmurs, Rubs Telemetry: Positive: Atrial fibrillation, Other Telemetry: (atrial flutter) Abdomen Exam: Positive: Normal bowel sounds, Soft; Negative: Tenderness, Hepatospenomegaly Extremity Exam: Positive: Normal pulses; Negative: Clubbing, Cyanosis, Edema Skin Exam: Positive: Nl turgor and temperature; Negative: Breakdown, Lesion Neuro Exam: Positive: Normal Gait, Normal Speech, Strength at 5/5 X4 ext, Normal Tone, Sensation Intact Psych Exam: Positive: Memory Intact, Oriented x 3 LABORATORY DATA: Please see below. ACTIVITY: [As tolerated]. DIET: Regular DISPOSITION: 01 Home, Self-Care. DISCHARGE INSTRUCTIONS: Follow up with Dr Christine in 1 week DISCHARGE CONDITION: [Stable]. TIME SPENT ON DISCHARGE: 35 minutes. Vital Signs/I&Os Vital Signs Date Time Temp Pulse Resp B/P (MAP) Pulse Ox O2 Delivery O2 Flow Rate FiO2 07/09/20 08:19 74 07/09/20 08:19 121/90 07/09/20 04:00 95.3 20 95 Room Air 07/08/20 15:00 3 I&O- Last 24 Hours up to 6 AM 07/10/20 07:00 Intake Total 300 ml Balance 300 ml Discharge Medications Scheduled Atenolol (Atenolol) 50 Mg Tablet, 50 MG PO DAILY, (Reported) Atorvastatin Calcium (Atorvastatin Calcium) 20 Mg Tablet, 20 MG PO DAILY, (Reported) Digoxin (Digoxin) 125 Mcg Tablet, 0.125 MG PO DAILY Rivaroxaban (Xarelto) 15 Mg Tablet, 1 TAB PO QPM Allergies Coded Allergies: No Known Allergies (Unverified , 07/07/20) CURLY CURIEL MD Jul 10, 2020 21:29
--- NOTE | 2020-07-11 07:45 | CR ---
DATE: 07/08/2020 REFERRING PHYSICIAN: Dr. Kylah Deal PRIMARY CARE PROVIDER: Dr. Maynor Gipson INDICATION: Recurrent near syncope with bradycardia. HISTORY: This 85-year-old retired, father of two grown children, resident of [place], [place], had been relatively independent and active his age up until one week ago. he claims to have tolerated riding his stationary bicycle for up to 20-30 minutes at his own pace limited by knee arthralgia. No history of chest pain, shortness of breath, palpitations, syncope, embolic phenomenon for claudication. Approximately one week ago, he began having recurrent transient visual loss while in the sitting position but did not fall or lose consciousness. He presented to [facility] ER yesterday and was admitted for observation. Observed to have underlying atrial fibrillation with rates that were observed to be up to 130 beats per minute on his current beta ector therapy. Overnight, current pauses of at least 4-5 seconds were observed leading to his current request for cardiology evaluation. He specifically denies any history of angina, prior infarction but has had an abnormal EKG and probable atrial fibrillation for some 30 years. Prior cardiac catheterization at [facility] in the remote past showed no evidence of coronary disease. He claims not to have had hypertension but has been on Atenolol for many years because of his atrial fibrillation. He has never had an awareness of his heart action. He does admit to a history of rheumatic fever as a child but unaware of any heart murmur. He denies any specific restriction up until very recently. Despite the duration of his arrhythmia, he denies any lateralizing neurological deficit, flank pain, hematuria or blue toe syndrome. CORONARY RISK FACTORS: Advanced age. Male gender. Hypercholesterolemia but denies hypertension. Lifelong nonsmoker. No history of diabetes. OTHER PAST MEDICAL/SURGICAL HISTORY: Remote appendectomy, tonsillectomy, cholecystectomy, and carpal tunnel release. Prior negative colonoscopy. History of polyneuropathy with moderate chronic renal insufficiency. History of degenerative disc disease. History of monoclonal gammopathy. He is unaware of his cardiomegaly that has been present for some time. EKG dating back to 2010 actually showed sinus bradycardia with first degree AV block and left axis deviation and probable LVH. No more recent EKG available for comparison. REVIEW OF SYSTEMS: He has reduced auditory acuity. No significant visual impairment. Denies weight loss, fever or chills. He has his own teeth. Only recent borderline chemical hypothyroidism. Chronic cough productive of whitish sputum. No history of hemoptysis or prior pneumonia. No difficulty with heartburn, reflux, dysphagia, abdominal pain or GI bleeding. Knee arthralgia as mentioned but no other muscular aches and pains. History of actinic keratosis. History of prostate cancer. Palmar fasciitis, polyneuropathy and rosacea. All other systems reviewed was negative. MEDICATIONS: At home he was taking atenolol 50 mg daily and atorvastatin 20 mg q.h.s. ALLERGIES: None known. PHYSICAL EXAMINATION: CONSTITUTIONAL: Bright, alert and orientated. Elderly male of medium body build and height, laid comfortably with the head of bed elevated 30 degrees. VITAL SIGNS: Heart rate 75 BPM and irregular, blood pressure 129/77 supine, respiratory rate 18, 02 saturation 99% on room air. Height 70 inches, weight 182 lb, body surface area 26.1, afebrile. EYES: Normal conjunctiva and lids. No xanthelasma. ENT/MOUTH: Teeth in good repair. Normal oral moisture, no central cyanosis or pallor. NECK: Trachea midline, thyroid was not enlarged. Neck veins were 2 cm above the sternal angle. RESPIRATORY: Normal appearing chest configuration and expansion. Good air entry for both lung hirsch with no abnormal pulmonary adventitious sounds. CARDIOVASCULAR: Apical impulse at the midclavicular line fifth intercostal space. Heart sounds were variable, no audible gallop. He has a soft systolic ejection murmur that is variable along the left sternal border. No diastolic murmur or rub. Carotid upstrokes were normal with variable volume related to his arrhythmia. No bruits. Peripheral pulses were symmetrical and normal. Abdominal aorta was not palpable. No bruits. A few dilated superficial venules, both lower legs but no dependent edema. GI: Soft, nontender abdomen with no hepatosplenomegaly. Normal bowel sounds. Rectal examination not indicated. MUSCULOSKELETAL: No obvious joint deformities. Normal appearing muscular strength and tone. Normal spine curvature. Gait was not assessed at this time. NEURO/PSYCH: Bright, alert and orientated, gave a lucid history. Eye, facial, and extremity moves were symmetrical and normal. No abnormal movements. SKIN: Skin lesions related to skin exposure with some atrophic changes, both lower legs but no significant rash, pallor or icterus. EXTREMITIES: No clubbing, peripheral cyanosis or splinter hemorrhages. INVESTIGATIONS: Portable upright chest x-ray reviewed independently shows heart size upper limits of normal for this technique, tortuous thoracic aorta. Normal appearing pulmonary vasculature with clear lung hirsch, no pleural effusion. Serial EKGs: July 07 and July 08 show underlying atrial fibrillation/flutter with controlled ventricular response averaging 73-75 BPM. Left axis deviation with incomplete right bundle branch block. Nonspecific anterolateral T-wave abnormalities. Voltage in aVL slightly prominent, suggesting left ventricular hypertrophy. No evolutionary EKG changes. TELEMETRY MONITORING: As mentioned, recurrent pauses of 2.9 to 4.9 seconds were observed with underlying atrial flutter/fibrillation throughout. BLOOD WORK: On admission, hemoglobin 15.1, normal white blood cell count and platelet count. Normal PT/INR and PTT. Electrolytes were normal., potassium 4.8, BUN 19, creatinine 1.26, random glucose 135, negative cardiac enzymes, ultrasensitive TSH 4.46, unchanged from last October. IMPRESSION/PLAN: * AV block (unspecified): Recurrent episodes of high-grade AV block were documented alternating with episodes of somewhat rapid ventricular response and atrial fibrillation/flutter. It is evident in order to tolerate negative chronotropic therapy safely, a permanent single-chamber ventricular demand pacemaker would be advised. * Atrial fibrillation/flutter: Believed to be permanent. Last available EKG to scrutinize is dated 2010 and showed a sinus bradycardia and first degree AV block on his beta ector. Fortunately, he has been free of symptom or sign of systemic thromboembolic event. We would obviously recommend dose adjusted oral anticoagulant, Eliquis following device implant. * Abnormal EKG: He has no symptoms to suggest myocardial ischemia. He does have risk factors including his age, gender and hypercholesterolemia with probable hypertension. It may be prudent to consider an objective evaluation of his coronary prognosis at a later date. With his age, would suggest a pharmacological stress heart scan. For the time being, will remain on protective beta ector, atorvastatin and will be started on Eliquis. * Cardiomegaly: He claims to have had a history of rheumatic fever but there is no audible murmur. In light of his atrial fibrillation, abnormal EKG and probable hypertension, an echocardiogram/Doppler study will also be arranged as an outpatient. This will allow us to assess his valvular structures and function. * Hypertensive heart disease (benign without heart failure): Despite his assertion that his pressure has not been elevated, I suspect this is the underlying etiology of his atrial arrhythmia. He has no symptoms or signs of congestion and his current blood pressure is controlled on beta ector therapy alone. Chronic stable mild renal insufficiency. These impressions and our plans have been discussed with the patient who appears to understand and agree. Consent has been signed for device implant, planned for later this afternoon under monitored local anesthesia. From our standpoint, he could probably be discharged home tomorrow if everything goes well. KEMAL
--- NOTE | 2020-07-11 11:07 | RO ---
DATE OF OPERATION: 07/08/2020 PROCEDURE: Implantation of single chamber ventricular demand pacemaker. PREOPERATIVE DIAGNOSES: * Intermittent high deidre arteriovenous (AV) block (symptomatic). * Permanent atrial fibrillation/flutter. POSTOPERATIVE DIAGNOSIS: 1. Intermittent high grade arteriovenous (AV) block (symptomatic). 2. Permanent atrial fibrillation/flutter. PROCEDURE: Implantation of permanent dual chamber pacemaker. IMPLANTING [facility] PHYSICIAN: Yonis Christine MD ANESTHESIOLOGIST: Dr. Gold ANESTHESIA: Monitored local anesthesia. DESCRIPTION OF PROCEDURE: In the fasting state following informed consent and Ancef 2 gm IV premedication, the patient was taken to the operating theatre. Numerous skin electrodes were applied to facilitate continuous electrocardiographic monitoring. The left subclavian region was prepped and draped in the usual fashion and the skin was infiltrated with 1% Xylocaine. The left axillary vein was catheterized using the micropuncture technique. A 5 cm linear incision was then made several cm below and parallel to the left clavicle. Dissection was carried down to the level of the pectoralis fascia and a pocket was fashioned below the level of the incision line. A single bipolar active fixation steroid-eluting pacing lead was positioned under fluoroscopic control to the right ventricular apex. The right ventricular lead ([employer], model #[id number], serial number [id number]) measurements were focal and stimulation threshold 0.8V/0.4 ms/impedence 610 ohms. The R wave amplitude measured 32 mV. This lead was secured in position with a sleeve sutured at its insertion. The lead was then connected to a single chamber pulse generator ([employer]), MRI compatible model #PN7369, serial number [id number]) and appropriate VVI pacing was documented. The device was placed and the pocket secured in position with a suture through the right upper-hand corner of the epoxy header. The subcutaneous tissues were approximated using a running chromic suture and the skin was closed using rhonda. A dry dressing was applied and the patient was returned to the recovery room good condition. No apparent complications. Estimated blood loss 5 ml. Postoperative portable upright chest x-ray confirmed stable lead position with no pneumothorax. His postoperative electrocardiogram (EKG) showed underlying atrial fibrillation with a controlled ventricular response averaging 86 bpm with appropriate ventricular sensing at this time. It is now safe for us to resume his beta ector and we may consider the addition of Digoxin as well to control his intermittent rapid ventricular responses to his persistent atrial fibrillation. After 24 hours he will also be started on dose-adjusted Eliquis oral anticoagulant therapy. MTDD
== END 2020-07-09 13:45 | disposition home or self-care (01) | DRG 243 ==
LOC: M ED 14:34 → M ED INP 14:35 → OBSVTOIN 17:22 → ENRESERV 19:06 → M PCU 20:32
PROVIDERS: ADMIT Internal Medicine Nephrology; ATTEND Internal Medicine Nephrology
PROC: 02HK3JZ Insertion of Pacemaker Lead into Right Ventricle, Percutaneous Approach (ICD-10-PCS; 2020-07-08)
PROC: 0JH604Z Insertion of Pacemaker, Single Chamber into Chest Subcutaneous Tissue and Fascia, Open Approach (ICD-10-PCS; principal; 2020-07-08 12:30)
DX: I49.5 Sick sinus syndrome (principal); I48.92 Unspecified atrial flutter; I48.21 Permanent atrial fibrillation; Z79.899 Other long term (current) drug therapy; E78.5 Hyperlipidemia, unspecified; I11.9 Hypertensive heart disease without heart failure; Z85.46 Personal history of malignant neoplasm of prostate; H93.19 Tinnitus, unspecified ear; Z85.828 Personal history of other malignant neoplasm of skin; E55.9 Vitamin D deficiency, unspecified; E78.00 Pure hypercholesterolemia, unspecified

== ENCOUNTER → 2020-07-26 | Outpatient (CLI) | payer MEDICARE ==
[~2020-07-26] MED LIST changes: +ATOR1TAB21 PO; +DIGO0.123 PO; +ELIQ2.5T PO; +XARE15TA PO
== END ==
LOC: M LAB 11:44
PROVIDERS: ATTEND Nurse Practitioner Family
DX: C61 Malignant neoplasm of prostate (principal)

== ENCOUNTER → 2020-08-15 | Outpatient (CLI) | payer MEDICARE ==
[~2020-08-15] MED LIST changes: +ISOVUE-370 76% 100ML VIAL As Ordered ONE
--- NOTE | 2020-08-15 16:47 | REP ---
INDICATION: NEOPLASM OF PROSTATE. COMPARISON: None. TECHNIQUE: Axial contrast-enhanced images of the pelvis using 100 cc Isovue 370 intravenous contrast material with coronal and sagittal reformations. This CT examination was performed using the following dose reduction techniques: Automated exposure control, adjustment of mA and/or kv according to the patient's size, and use of iterative reconstruction technique. FINDINGS: Visualized portions of the kidneys demonstrate 4.1 cm left renal cyst incompletely evaluated. Visualized portions of the small and large bowel without obstruction or acute inflammatory process. Small fat containing inguinal hernias noted. Visualized portions of the aorta and vasculature demonstrate atherosclerotic changes. Bladder is unremarkable. Evidence for prior prostate intervention. No pelvic fluid, acute inflammatory stranding, or adenopathy. Surrounding osseous structures demonstrate degenerative changes without obvious focal sclerotic metastatic lesion identified. IMPRESSION: 1. Evidence for prior prostate intervention. 2. No evidence for metastatic disease. 3. Nonacute limited findings as described above. <Electronically signed by Jose Hernandez > 08/15/20 [id number]
== END ==
LOC: M RAD 16:17
PROVIDERS: ATTEND Nurse Practitioner Family
DX: C61 Malignant neoplasm of prostate (principal); N28.1 Cyst of kidney, acquired
CPT/HCPCS: 72193; Q9967

== ENCOUNTER → 2020-10-31 | Outpatient (CLI) | payer MEDICARE ==
[~2020-10-31] MED LIST changes: -ISOVUE-370 76% 100ML VIAL As Ordered ONE
[2020-10-31 06:55] LABS: BASO % 0.5 % (0.0-1.0); EOS # 0.3 10^3/uL (0.0-0.5); EOS % 3.6 % (0.0-3.0); HEMATOCRIT 45.9 % (42.0-52.0); HEMOGLOBIN 15.3 g/dl (13.5-17.5); LYMPH # 1.4 10^3/uL (1.5-5.0); LYMPH % 15.8 % (24.0-44.0); MEAN CORPUSCULAR HEMOGLOBIN 31.9 pg (27.0-33.0); MEAN CORPUSCULAR HGB CONC 33.3 g/dl (32.0-36.5); MEAN CORPUSCULAR VOLUME 95.8 fl (80.0-96.0); MONO # 0.8 10^3/uL (0.0-0.8); MONO % 8.9 % (2.0-8.0); NEUTROPHILS # 6.2 10^3/uL (1.5-8.5); NEUTROPHILS % 70.7 % (36.0-66.0); PLATELET COUNT, AUTOMATED 255 10^3/uL (150-450); RED BLOOD COUNT 4.79 10^6/uL (4.30-6.10); WHITE BLOOD COUNT 8.8 10^3/uL (4.0-10.0)
[2020-10-31 07:12] LABS: HEMOGLOBIN A1c 6.3 %
[2020-10-31 07:47] LABS: CHOLESTEROL RISK RATIO 3.315 (<5); DIGOXIN LEVEL 0.9 NG/ML (0.5-2.0); TOTAL PROTEIN 6.9 GM/DL (6.4-8.2)
== END ==
LOC: M LAB 06:19
PROVIDERS: ATTEND Family Medicine
DX: R73.01 Impaired fasting glucose (principal); I48.0 Paroxysmal atrial fibrillation; D47.2 Monoclonal gammopathy; E78.5 Hyperlipidemia, unspecified

== ENCOUNTER → 2020-11-15 | Outpatient (REF) | payer MEDICARE | LOC: M SFHCPLAZ 18:52 | PROVIDERS: ATTEND Family Medicine | DX: C44.319 Basal cell carcinoma of skin of other parts of face (principal) ==

== ENCOUNTER → 2021-02-09 | Outpatient (CLI) | payer MEDICARE | LOC: M LAB 06:13 | PROVIDERS: ATTEND Urology | DX: R97.21 Rising PSA following treatment for malignant neoplasm of prostate (principal) ==

== ENCOUNTER → 2021-02-13 | Outpatient (CLI) | payer MEDICARE ==
[2021-02-13 07:40] LABS: HEMATOCRIT 44.1 % (42.0-52.0); HEMOGLOBIN 14.4 g/dl (13.5-17.5); MEAN CORPUSCULAR HEMOGLOBIN 31.9 pg (27.0-33.0); MEAN CORPUSCULAR HGB CONC 32.7 g/dl (32.0-36.5); MEAN CORPUSCULAR VOLUME 97.6 fl (80.0-96.0); PLATELET COUNT, AUTOMATED 265 10^3/uL (150-450); RED BLOOD COUNT 4.52 10^6/uL (4.30-6.10); WHITE BLOOD COUNT 8.9 10^3/uL (4.0-10.0)
[2021-02-13 08:02] LABS: TOTAL PROTEIN,RANDOM URINE 8.5 MG/DL (0.0-12.0)
[2021-02-13 08:11] LABS: ALBUMIN 3.5 GM/DL (3.2-5.2); ALT/SGPT 28 U/L (12-78); BILIRUBIN,TOTAL 0.7 MG/DL (0.2-1.0); BLOOD UREA NITROGEN 20 MG/DL (7-18); CARBON DIOXIDE LEVEL 27 MEQ/L (21-32); CHLORIDE LEVEL 107 MEQ/L (98-107); CREATININE FOR GFR 1.14 MG/DL (0.70-1.30); GLOMERULAR FILTRATION RATE > 60.0 (>35); GLUCOSE, FASTING 110 MG/DL (70-100); POTASSIUM SERUM 4.3 MEQ/L (3.5-5.1); SODIUM LEVEL 139 MEQ/L (136-145); TOTAL PROTEIN 6.6 GM/DL (6.4-8.2)
[2021-02-13 10:06] LABS: TOTAL 25(OH) VITAMIN D 34.4 NG/ML (30.0-100.0)
[2021-02-13 10:07] LABS: PTH INTACT 56.3 PG/ML (18.5-88.0)
[2021-02-13 10:19] LABS: HEMOGLOBIN A1c 6.4 %
[2021-02-15 05:07] LABS: FREE KAPPA LIGHT CHAINS SERUM 13.4 mg/L (3.3-19.4); FREE KAPPA LIGHT CHAINS URINE 23.75 mg/L (0.63-113.79); FREE LAMBDA LIGHT CHAINS SERUM 76.5 mg/L (5.7-26.3); FREE LAMBDA LIGHT CHAINS URINE 26.05 mg/L (0.47-11.77); INSULIN LEVEL 7.5 uIU/mL (2.6-24.9); KAPPA/LAMBDA RATIO SERUM 0.18 (0.26-1.65); KAPPA/LAMBDA RATIO URINE 0.91 (1.03-31.76)
== END ==
LOC: M LAB 06:39
PROVIDERS: ATTEND Family Medicine
DX: D47.2 Monoclonal gammopathy (principal); E78.5 Hyperlipidemia, unspecified; E55.9 Vitamin D deficiency, unspecified; R73.01 Impaired fasting glucose; Z79.899 Other long term (current) drug therapy

== ENCOUNTER → 2021-04-26 | Outpatient (CLI) | payer MEDICARE ==
[2021-04-26 11:55] LABS: HEMATOCRIT 47.7 % (42.0-52.0); HEMOGLOBIN 15.9 g/dl (13.5-17.5); MEAN CORPUSCULAR HEMOGLOBIN 32.3 pg (27.0-33.0); MEAN CORPUSCULAR HGB CONC 33.3 g/dl (32.0-36.5); PLATELET COUNT, AUTOMATED 308 10^3/uL (150-450); RED BLOOD COUNT 4.92 10^6/uL (4.30-6.10); WHITE BLOOD COUNT 10.3 10^3/uL (4.0-10.0)
[2021-04-26 12:21] LABS: ERYTHROCYTE SEDIMENTATION RATE 10 mm/hr (0-20)
[2021-04-26 12:24] LABS: ALBUMIN 3.5 GM/DL (3.2-5.2); ALT/SGPT 33 U/L (12-78); BILIRUBIN,TOTAL 0.6 MG/DL (0.2-1.0); BLOOD UREA NITROGEN 24 MG/DL (7-18); CALCIUM LEVEL 9.5 MG/DL (8.8-10.2); CARBON DIOXIDE LEVEL 29 MEQ/L (21-32); CHLORIDE LEVEL 105 MEQ/L (98-107); CREATININE FOR GFR 1.18 MG/DL (0.70-1.30); GLOMERULAR FILTRATION RATE > 60.0 (>35); GLUCOSE, FASTING 161 MG/DL (70-100); POTASSIUM SERUM 4.2 MEQ/L (3.5-5.1); SODIUM LEVEL 138 MEQ/L (136-145); TOTAL PROTEIN 6.9 GM/DL (6.4-8.2)
[2021-04-27 17:07] LABS: Lyme Disease IgG/IgM Antibodie <0.91 ISR (0.00-0.90); Lyme Disease IgM Ab Quantitati <0.80 index (0.00-0.79)
== END ==
LOC: M PLALAB 09:05
PROVIDERS: ATTEND Physician Assistant
DX: R53.83 Other fatigue (principal)

== ENCOUNTER → 2021-05-04 | Outpatient (CLI) | payer MEDICARE ==
[~2021-05-04] MED LIST changes: +TRAM50TA2 PO
== END ==
LOC: M LABSMTC 09:02
PROVIDERS: ATTEND Anesthesiology
DX: Z01.818 Encounter for other preprocedural examination (principal); Z11.52 Encounter for screening for COVID-19

== ENCOUNTER 2021-05-09 13:50 | Observation (INO) | payer MEDICARE ==
[~2021-05-09] VITALS: Ht 177.8 cm; Wt 81.6 kg
[~2021-05-09 13:50] MED LIST changes: +LR 1,000 ML IV ONE; +ceFAZolin SOD 1 GM in D5W MINI-BAG PLUS 50 ML IV ONE
[2021-05-09] MEDS ORDERED: propofoL 200 MG/20 ML VIAL As Ordered ONE (14:33)
[2021-05-09] MEDS ORDERED: MIDAZOLAM INJ 2MG/2ML VIAL (J2250 PER 1MG) As Ordered ONE (14:33)
[2021-05-09] MEDS ORDERED: LIDOCAINE 2% 100MG/5ML SDV (FOR ANES.) As Ordered ONE (14:33)
[2021-05-09] MEDS ORDERED: fentaNYL 100 MCG/2 ML INJECTION (J3010) As Ordered ONE (14:34)
[2021-05-09] MEDS ORDERED: AMIODARONE 150MG/3ML INJ (J0282) As Ordered ONE (15:10)
[2021-05-09] MEDS ORDERED: BACITRACIN OINTMENT 30GM TUBE As Ordered ONE (15:10)
[2021-05-09] MEDS ORDERED: ISOVUE-300 61% 50ML VIAL As Ordered ONE (15:10)
[2021-05-09] MEDS ORDERED: LIDOCAINE 1% SDV 30ML VIAL As Ordered ONE (15:11)
[2021-05-09 15:38] LABS: INR 0.96; PROTHROMBIN TIME 13.2 SECONDS (12.7-14.5)
[2021-05-09 15:39] LABS: PARTIAL THROMBOPLASTIN TIME 31.6 SECONDS (25.9-37.0)
[2021-05-09] MEDS ORDERED: ceFAZolin 1GM VIAL (J0690 PER 500MG) As Ordered ONE ×2 (15:42→16:27)
[2021-05-09] MEDS ORDERED: ACETAMINOPHEN 500 MG TAB PO PRN (16:50)
[2021-05-09] MEDS ORDERED: traMADol 50 MG TAB PO PRN (16:50)
--- NOTE | 2021-05-09 17:20 | REP ---
INDICATION: Post pacing lead implantation. COMPARISON: 07/09/2020 the latest prior TECHNIQUE: Portable FINDINGS: The technique utilized in obtaining the radiograph has magnified the cardiac silhouette and accentuated the interstitial markings. There is a dual chamber bipolar pacemaker device in place. Leads appear appropriate and contiguous. The right lower lung field has not been included on the radiograph. A subtle patchy opacities seen in the left CP angle. There is chronic fibrotic change status quo. There is no significant change in the osseous structures. IMPRESSION: 1. Pacemaker device as described above. 2. The exam is limited since not all of the right lung field was included. Repeat examination is recommended. 3. Likely small focus of subsegmental atelectatic change in the left CP angle. <Electronically signed by Gasper Bullard > 05/09/21 [id number]
[2021-05-09] MEDS ORDERED: LR 1,000 ML IV SCH (17:35)
[2021-05-09] MEDS ORDERED: ONDANSETRON 4MG/2ML VIAL IV PRN (17:35)
[2021-05-09] MEDS: AMIODARONE 200 MG TAB (PACERONE) PO SCH ×2 (17:53→20:54)
[2021-05-09 18:00] VITALS: BP 146/80
[2021-05-09] MEDS ORDERED: RIVAROXABAN 15 MG TAB (XARELTO) PO SCH (18:00)
[2021-05-09 18:30] VITALS: BP 139/85
--- NOTE | 2021-05-09 19:45 | RO ---
OPERATIVE NOTE DATE OF OPERATION: 05/09/2021 PREOPERATIVE DIAGNOSIS: 1. Paroxysmal atrial flutter. 2. AV block. 3. 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 POSTOPERATIVE DIAGNOSIS: 1. Paroxysmal atrial flutter. 2. AV block. 3. 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 PROCEDURE: Upgrade of single-chamber pacing system to a dual-chamber system with implantation of atrial pacing lead and new dual-chamber pulse generator. IMPLANTING DATA ADMINISTRATOR: Yonis Christine M.D. MAIL LIST PROCESSOR: ANESTHESIOLOGIST: Dr. Damon ANESTHESIA: Monitored local anesthesia. CLINICAL SUMMARY: This 85-year-old resident of [place], is well known to my cardiology practice having history of hypertensive heart disease, complicated by high grade AV block and single-chamber pacemaker implant on July 08, 2020 in light of suspected permanent atrial fibrillation at that time. However, six months following original implant, the patient presents to our office with underlying sinus mechanism. In light of his recent echocardiogram on February 28, 2021 showing moderate left ventricular hypertrophy with left ventricular diastolic dysfunction and left atrial enlargement and mild pulmonary hypertension, we recommended upgrade of his single chamber device to a dual chamber to preserve AV sequential contraction and reduce his risk of developing congestive heart failure. At this point, he is chiefly limited by peripheral neuropathy and on his current level of activity, he has been free of cardiovascular complaint. On examination, he is a pleasant, elderly male of stocky build. Heart rate was 60 beats per minute and paced, blood pressure 118/64 sitting, respiratory rate 16, BMI was 25.4. No pallor or cyanosis. Trachea midline. Neck veins were 2 cm above the sternal angle. Slightly increased anterior-posterior chest diameter but good air entry of both lung hirsch with no abnormal pulmonary adventitious sounds. Apical impulse was not palpable. Heart sounds were distant. No audible gallop or rub. No audible murmur. Normal carotid upstrokes and normal volume with no carotid bruits. Upper extremity and pedal pulses were symmetrical and normal. Abdominal aorta not palpable. No current pedal edema. Soft, nontender abdomen with no hepatosplenomegaly. EKG showed underlying sinus rhythm with AV block and consistent ventricular paced rhythm at 60 BPM. Paced QRS complexes, leftward axis and LBBB configuration, keeping with RV apical stimulation. Blood work showed hemoglobin of 14.4, normal white blood cell count and platelet count, electrolytes were normal with potassium of 4.3, BUN 20, creatinine 1.14, random glucose 110, TSH normal at 2.7. DESCRIPTION OF PROCEDURE: With the patient in the fasting state, having signed informed consent and having received Ancef 2 gm IV premedication, the patient was taken to the operating theater. Numerous skin electrodes were applied to facilitate continuous electrocardiographic monitoring. The left subclavian region at the site of his original pacemaker implant was prepped and draped in the usual fashion. The skin was infiltrated with 1% Xylocaine and the left axillary vein was catheterized using the micropuncture technique. A 5 cm linear incision was made over the same site as its original incision. Careful dissection was then performed down to the level of his pacemaker pulse generator which was then explanted. We then advanced a new right atrial pacing lead under fluoroscopic electrocardiographic control to his high right atrial appendage. The atrial lead ([employer], model number 2088TC/52, serial number [id number]) measurements were focal and stimulation threshold difficult to ascertain as he developed atrial flutter. His lead impedance was 546 ohms. His flutter wave measured 5.4 mV. Once his lead was secured in position, we attempted to perform atrial overdrive pacing using output setting 7.5 volts/1.0 milliseconds and pacing cycle lengths of 190 milliseconds, 180 milliseconds and 170 milliseconds in 20 second bursts. Unfortunately despite his sinus mechanism documented April 25, 2021, we were not successful in converting his atrial flutter. His atrial lead was secured in position with a sleeve sutured at its insertion site. His old ventricular pacing ([employer], model number [id number]/58, serial number [id number]) measurements were pacing threshold 0.5 V/ 0.4 ms/lead impedance of 510 ohms. The R wave amplitude measured 35 mV. His single chamber pulse generator ([employer], model number [id number], serial number [id number] implanted July 08, 2020) was then disconnected. His old ventricular pacing lead and his new atrial pacing lead were then connected to a new dual chamber pulse generator ([employer] MRI compatible, model number [id number], serial number [id number]) and appropriate DDD pacing was documented. The old pacemaker pocket was thoroughly irrigated with an Ancef solution. The new pulse generator and leads were then placed in the pocket. The subcutaneous tissues were approximated using a running Chromic suture and the skin was closed using rhonda. A dry dressing was applied and the patient was tolerating the procedure well. Estimated blood loss: Less than 5 ml. Our tentative plan at this time is to start him on amiodarone 200 mg q.i.d. for at least the next week to see if he spontaneously converts to his sinus mechanism. Should this prove unsuccessful, we will arrange for him to undergo atrial flutter ablation procedure in the near future. While we were starting his antiarrhythmic therapy, he will be monitored overnight on telemetry. He will also receive an additional three doses of Ancef 1 gm IV q.8h. His Zaroxolyn oral anticoagulant will be resumed tomorrow evening. His other medications including atenolol and digoxin will be resumed but his digoxin dosage will be adjusted in light of his amiodarone therapy.
[2021-05-09 20:00] VITALS: BP 115/61
[2021-05-09] MEDS ORDERED: ATORVASTATIN 20 MG TAB PO SCH (21:00)
[2021-05-10] VITALS: BP 118/64
[2021-05-10] MEDS: ceFAZolin 1GM VIAL (J0690 PER 500MG) IM SCH ×3 (00:58→16:54)
[2021-05-10 04:00] VITALS: BP 122/62
--- NOTE | 2021-05-10 06:11 | ECGEPIP ---
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
--- NOTE | 2021-05-10 06:39 | ECGEPIP ---
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
[2021-05-10 07:47] VITALS: BP 142/65
--- NOTE | 2021-05-10 08:18 | REP ---
INDICATION: Post pacing lead implant. COMPARISON: Portable chest, 05/09/2021. TECHNIQUE: PA and lateral chest images were obtained. FINDINGS: There is linear scarring in the left lung base. The lungs are otherwise clear. The heart size is normal. There is calcific vascular disease of the thoracic aorta. There is a pacemaker device in the left upper chest wall. The dual leads appear in proper position. There are skin rhonda in the area of the pacemaker device consistent with recent implantation. IMPRESSION: 1. Linear scarring in the left lung base. 2. Dual lead pacemaker device as described. <Electronically signed by Kolby Philip > 05/10/21 0172
[2021-05-10] MEDS ORDERED: atenoloL 50 MG TAB PO SCH (09:00)
[2021-05-10] MEDS ORDERED: ASPIRIN 81MG ENTERIC TABLET PO SCH (09:00)
[2021-05-10] MEDS: AMIODARONE 200 MG TAB (PACERONE) PO SCH ×3 (09:21→16:54)
[2021-05-10 11:35] VITALS: BP 126/58
[2021-05-10 15:50] VITALS: BP 134/64
[2021-05-10 16:03] VITALS: BP 146/81
[2021-05-10] MEDS ORDERED: AMIO200T3 PO (17:03)
--- NOTE | 2021-05-10 20:07 | IPN ---
CARDIOLOGY PROGRESS NOTE DATE: 05/10/2021 SUBJECTIVE: The patient reports having no more than minor incisional discomfort following his pacemaker upgrade yesterday. He has been up to the bathroom without difficulties. He has been tolerating his amiodarone antiarrhythmic therapy without difficulty. OBJECTIVE: A pleasant, elderly male, very hard of hearing (unfortunately his hearing aids are not working at this time), of normal body build, lying comfortably. Heart rate 63 beats per minute and regular, blood pressure 134/64, respiratory rate 18, O2 saturation 97% on room air. Afebrile. Weight 179 lb, height 70 inches, BMI 25.8, no pallor or icterus. Trachea midline. Neck veins were not elevated at this time. Slightly increased anterior-posterior chest diameter. His left subclavian pacemaker incision appears to be healing well with no drainage. His dressing was changed. surveillance system monitor early this morning after having received several doses of amiodarone 200 mg p.o. His underlying atrial flutter converted to sinus mechanism/atrially paced rhythm. Appropriate pacer function was documented. EKG: His tracing taken this morning shows consistent AV sequentially paced rhythm at 60 beats per minute. Paced QRS complexes are unchanged, showing a leftward axis and LBBB configuration. Chest x-ray: Study reviewed independently shows heart size upper limits of normal with slightly unfolded thoracic aorta, slightly plump proximal pulmonary vessels but no infiltrate or pleural effusion. Dual chamber pulse generator sitting in the left subclavian region with two bipolar pacing leads, one terminating in the right ventricular apex and the other in the high right atrial appendage. No pneumothorax. Pacemaker interrogation: [employer] model number Assurity MRI compatible [id number]. Excellent intracardiac electrograms with P wave amplitude measuring at least 1.4 mv although the actual printout shows complexes that appear at least 5 millivolts. Ventricular intracardiac electrogram measured greater than 12 millivolts. Pacing thresholds: We were able to activate atrial Cap confirm and pacing threshold was 0.5 V/0.4 ms bipolar. Ventricular Autoc[employer]ure was also activated and shows a pacing threshold of 0.625 volts and 0.4 milliseconds. His low rate is set at 60 with upper tracking rate at 90 beats per minute. His AV sensed interval is 150 milliseconds and paced AV interval 170 milliseconds. He has mode switching activated. Anticipated battery voltage in excess of ten years. IMPRESSION/PLAN: 1. Paroxysmal atrial flutter: Gratifyingly, he has converted from atrial flutter to an organized atrial mechanism sinus versus atrial paced rhythm. Our plan is to continue his amiodarone at 200 mg p.o. q.i.d. until May 22, 2021, then the dose will decrease to one tablet three times a day until June 15, 2021, then his dose will be decreased to one tablet b.i.d. until July 16, then his dose will continue one tablet daily. His Digoxin therapy will be discontinued. He will remain on Atenolol 50 mg daily and his Xarelto 15 mg daily. 2. AV block (unspecified): Dual chamber pacemaker in situ with appropriate function, excellent intracardiac electrograms and pacing thresholds with no pneumothorax on his chest x-ray and demonstrated appropriate pacer function. Pacemaker program changes as mentioned above. His rate response has been activated. 3. 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 At this point, the patient will be discharged home with instructions to perform only light activities of daily living with his left arm until his rhonda are removed in our office May 18, 2021 at 9:30 a.m. He has also been instructed to avoid getting his incision wet until his rhonda are removed. He should probably contact us should he notice any abnormal erythema, swelling or discharge. Discharge medications will include: Amiodarone (as instructed above), atenolol 50 mg daily, atorvastatin 20 mg q.h.s., Xarelto 15 mg daily, tramadol 50 mg p.o. q.i.d. p.r.n. arthritic pains. His digoxin therapy has been discontinued.
[2021-05-11] MEDS ORDERED: DIGOXIN 0.125 MG TAB PO SCH (09:00)
== END 2021-05-10 17:40 | disposition home or self-care (01) ==
LOC: M SDC 13:50 → M PM&R 13:51 → M PCU 17:43
PROVIDERS: ADMIT Internal Medicine Cardiovascular Disease; ATTEND Internal Medicine Cardiovascular Disease
DX: I48.0 Paroxysmal atrial fibrillation (principal); I44.1 Atrioventricular block, second degree; I11.9 Hypertensive heart disease without heart failure; E78.00 Pure hypercholesterolemia, unspecified; Z85.46 Personal history of malignant neoplasm of prostate; Z79.01 Long term (current) use of anticoagulants; Z79.899 Other long term (current) drug therapy
CPT/HCPCS: 33214; 36415; 71045; 71046; 76000; 85610; 85730; 93005; 96372; C1785; C1898; G0378; J0690; J2250; J3010

== ENCOUNTER → 2021-08-17 | Outpatient (CLI) | payer MEDICARE ==
[~2021-08-17] MED LIST changes: +AMIO200T3 PO; -LR 1,000 ML IV ONE; -ceFAZolin SOD 1 GM in D5W MINI-BAG PLUS 50 ML IV ONE
[2021-08-19 15:07] LABS: PSA % FREE 6.4 % (.); PSA FREE 0.27 ng/mL; PSA TOTAL 4.2 ng/mL (0.0-4.0)
== END ==
LOC: M LAB 12:47
PROVIDERS: ATTEND Urology
DX: R97.21 Rising PSA following treatment for malignant neoplasm of prostate (principal)

== ENCOUNTER → 2021-09-05 | Outpatient (CLI) | payer MEDICARE ==
[~2021-09-05] MED LIST changes: -AMIO200T3 PO; +AMIO200T49 PO
[2021-09-05 08:05] LABS: BASO # 0.1 10^3/uL (0.0-0.2); BASO % 0.5 % (0.0-1.0); EOS # 0.1 10^3/uL (0.0-0.5); EOS % 1.3 % (0.0-3.0); HEMATOCRIT 44.1 % (42.0-52.0); HEMOGLOBIN 14.5 g/dl (13.5-17.5); LYMPH % 10.2 % (24.0-44.0); MEAN CORPUSCULAR HEMOGLOBIN 32.2 pg (27.0-33.0); MEAN CORPUSCULAR HGB CONC 32.9 g/dl (32.0-36.5); MONO # 0.8 10^3/uL (0.0-0.8); NEUTROPHILS # 7.7 10^3/uL (1.5-8.5); NEUTROPHILS % 79.6 % (36.0-66.0); PLATELET COUNT, AUTOMATED 282 10^3/uL (150-450); WHITE BLOOD COUNT 9.7 10^3/uL (4.0-10.0)
[2021-09-05 08:23] LABS: HEMOGLOBIN A1c 6.4 %
[2021-09-05 08:42] LABS: ALBUMIN 3.5 GM/DL (3.2-5.2); ALT/SGPT 40 U/L (12-78); BILIRUBIN,TOTAL 0.6 MG/DL (0.2-1.0); BLOOD UREA NITROGEN 31 MG/DL (7-18); CALCIUM LEVEL 9.5 MG/DL (8.8-10.2); CARBON DIOXIDE LEVEL 28 MEQ/L (21-32); CHLORIDE LEVEL 107 MEQ/L (98-107); CREATININE FOR GFR 1.44 MG/DL (0.70-1.30); GLOMERULAR FILTRATION RATE 49.8 (>35); GLUCOSE, FASTING 136 MG/DL (70-100); POTASSIUM SERUM 4.5 MEQ/L (3.5-5.1); SODIUM LEVEL 138 MEQ/L (136-145); TOTAL PROTEIN 6.9 GM/DL (6.4-8.2)
[2021-09-05 09:14] LABS: PTH INTACT 53.1 PG/ML (18.5-88.0); TOTAL 25(OH) VITAMIN D 40.3 NG/ML (30.0-100.0)
[2021-09-05 13:06] LABS: ALBUMIN 3.79 GM/DL (3.29-5.55); ALBUMIN % 54.9 % (55.8-66.1); ALPHA-1-GLOBULIN % 5.7 % (2.9-4.9); ALPHA-1-GLOBULINS 0.39 GM/DL (0.17-0.41); ALPHA-2-GLOBULINS 0.97 GM/DL (0.42-0.99); ALPHA-2-GLOBULINS % 14.1 % (7.1-11.8); BETA-1-GLOBULINS 0.38 GM/DL (0.28-0.60); BETA-1-GLOBULINS % 5.5 % (4.7-7.2); BETA-2-GLOBULINS 0.33 GM/DL (0.19-0.55); BETA-2-GLOBULINS % 4.8 % (3.2-6.5); GAMMA GLOBULINS 1.04 GM/DL (0.65-1.58)
== END ==
LOC: M LAB 07:16
PROVIDERS: ATTEND Family Medicine
DX: R73.01 Impaired fasting glucose (principal); D47.2 Monoclonal gammopathy; E55.9 Vitamin D deficiency, unspecified; Z79.899 Other long term (current) drug therapy

== ENCOUNTER → 2021-09-11 | Outpatient (CLI) | payer MEDICARE ==
[2021-09-11 13:13] LABS: BASO % 0.4 % (0.0-1.0); EOS # 0.1 10^3/uL (0.0-0.5); EOS % 1.1 % (0.0-3.0); HEMOGLOBIN 15.7 g/dl (13.5-17.5); LYMPH # 0.9 10^3/uL (1.5-5.0); LYMPH % 8.6 % (24.0-44.0); MEAN CORPUSCULAR HEMOGLOBIN 31.5 pg (27.0-33.0); MEAN CORPUSCULAR VOLUME 98.4 fl (80.0-96.0); MONO # 0.8 10^3/uL (0.0-0.8); NEUTROPHILS # 8.3 10^3/uL (1.5-8.5); NEUTROPHILS % 81.5 % (36.0-66.0); PLATELET COUNT, AUTOMATED 337 10^3/uL (150-450); RED BLOOD COUNT 4.98 10^6/uL (4.30-6.10); WHITE BLOOD COUNT 10.2 10^3/uL (4.0-10.0)
[2021-09-11 13:48] LABS: ALBUMIN 3.6 GM/DL (3.2-5.2); BILIRUBIN,TOTAL 0.5 MG/DL (0.2-1.0); CALCIUM LEVEL 9.9 MG/DL (8.8-10.2); CREATININE FOR GFR 1.34 MG/DL (0.70-1.30); FREE T4 1.06 NG/DL (0.76-1.46); GLOMERULAR FILTRATION RATE 54.1 (>35); MAGNESIUM LEVEL 2.6 MG/DL (1.8-2.4); POTASSIUM SERUM 5.2 MEQ/L (3.5-5.1); THYROID STIMULATING HORMONE 4.94 uIU/ML (0.358-3.740); TOTAL PROTEIN 7.3 GM/DL (6.4-8.2)
== END ==
LOC: M PLAIMG 11:24
PROVIDERS: ATTEND Family Medicine
DX: K59.09 Other constipation (principal)

== ENCOUNTER → 2022-01-18 | Outpatient (CLI) | payer MEDICARE ==
[2022-01-18 08:02] LABS: CALCIUM LEVEL 9.8 MG/DL (8.8-10.2); CREATININE FOR GFR 1.51 MG/DL (0.70-1.30); GLOMERULAR FILTRATION RATE 47.1 (>35); POTASSIUM SERUM 4.6 MEQ/L (3.5-5.1)
[2022-01-18 08:03] LABS: ALBUMIN 3.4 GM/DL (3.2-5.2); BILIRUBIN,TOTAL 0.8 MG/DL (0.2-1.0); CHOLESTEROL RISK RATIO 2.98 (<5); FREE T4 1.1 NG/DL (0.76-1.46); THYROID STIMULATING HORMONE 3.92 uIU/ML (0.358-3.740); TOTAL PROTEIN 6.8 GM/DL (6.4-8.2)
[2022-01-18 09:12] LABS: HEMOGLOBIN A1c 6.4 %
[2022-01-19 19:10] LABS: FREE KAPPA LIGHT CHAINS SERUM 18.4 mg/L (3.3-19.4); FREE LAMBDA LIGHT CHAINS SERUM 75.3 mg/L (5.7-26.3); INSULIN LEVEL 12.1 uIU/mL (2.6-24.9); KAPPA/LAMBDA RATIO SERUM 0.24 (0.26-1.65)
== END ==
LOC: M LAB 06:39
PROVIDERS: ATTEND Family Medicine
DX: R73.01 Impaired fasting glucose (principal); I10 Essential (primary) hypertension; D47.2 Monoclonal gammopathy

== ENCOUNTER → 2022-01-18 | Outpatient (CLI) | payer MEDICARE ==
[2022-01-18 08:24] LABS: CREATININE FOR GFR 1.5 MG/DL (0.70-1.30); GLOMERULAR FILTRATION RATE 47.5 (>35)
== END ==
LOC: M LAB 06:41
PROVIDERS: ATTEND Urology
DX: Z01.812 Encounter for preprocedural laboratory examination (principal); R97.21 Rising PSA following treatment for malignant neoplasm of prostate

== ENCOUNTER → 2022-02-01 | Outpatient (CLI) | payer MEDICARE ==
[2022-02-01 06:43] LABS: BASO # 0.1 10^3/uL (0.0-0.2); BASO % 0.5 % (0.0-1.0); EOS # 0.4 10^3/uL (0.0-0.5); EOS % 3.6 % (0.0-3.0); HEMOGLOBIN 14.4 g/dl (13.5-17.5); LYMPH # 1.6 10^3/uL (1.5-5.0); LYMPH % 13.6 % (24.0-44.0); MEAN CORPUSCULAR HEMOGLOBIN 31.4 pg (27.0-33.0); MEAN CORPUSCULAR VOLUME 98.3 fl (80.0-96.0); NEUTROPHILS # 8.3 10^3/uL (1.5-8.5); NEUTROPHILS % 72.8 % (36.0-66.0); PLATELET COUNT, AUTOMATED 291 10^3/uL (150-450); RED BLOOD COUNT 4.58 10^6/uL (4.30-6.10); WHITE BLOOD COUNT 11.4 10^3/uL (4.0-10.0)
[2022-02-01 07:10] LABS: TOTAL PROTEIN 6.8 GM/DL (6.4-8.2)
== END ==
LOC: M LAB 06:21
PROVIDERS: ATTEND Family Medicine
DX: C61 Malignant neoplasm of prostate (principal); D47.2 Monoclonal gammopathy
CPT/HCPCS: 36415; 84165; 85025; G0103

== ENCOUNTER → 2022-02-20 | Outpatient (CLI) | payer MEDICARE | LOC: M RAD 07:12 | PROVIDERS: ATTEND Family Medicine | DX: N18.30 Chronic kidney disease, stage 3 unspecified (principal); N28.1 Cyst of kidney, acquired ==

== ENCOUNTER → 2022-03-05 | Outpatient (CLI) | payer MEDICARE | LOC: M RAD 09:22 | PROVIDERS: ATTEND Urology | DX: R91.8 Other nonspecific abnormal finding of lung field (principal) ==

== ENCOUNTER → 2022-07-10 | Outpatient (CLI) | payer MEDICARE | LOC: M LAB 06:42 | PROVIDERS: ATTEND Urology | DX: R97.21 Rising PSA following treatment for malignant neoplasm of prostate (principal) ==

== ENCOUNTER → 2022-07-10 | Outpatient (CLI) | payer MEDICARE ==
[2022-07-10 07:41] LABS: CREATININE,RANDOM URINE 136.4 MG/DL; TOTAL PROTEIN,RANDOM URINE 19.2 MG/DL (0.0-14.0)
[2022-07-10 08:03] LABS: HEMOGLOBIN A1c 6.6 % (4.0-6.0)
[2022-07-10 18:01] LABS: ALBUMIN 3.5 G/DL (3.2-5.2); ALT/SGPT 28 U/L (7.0-40); BILIRUBIN,TOTAL 0.7 MG/DL (0.3-1.2); BLOOD UREA NITROGEN 34 MG/DL (9-23); CARBON DIOXIDE LEVEL 25 MMOL/L (20-31); CHLORIDE LEVEL 104 MMOL/L (98-107); CREATININE FOR GFR 1.38 MG/DL (0.70-1.30); FREE T4 1.16 NG/DL (0.89-1.76); GLOMERULAR FILTRATION RATE 52.1 (>35); GLUCOSE, FASTING 155 MG/DL (74-106); IMMUNOGLOBULIN A 158.2 MG/DL (40-350); IMMUNOGLOBULIN G 863 MG/DL (650-1600); MAGNESIUM LEVEL 1.9 MG/DL (1.8-2.4); POTASSIUM SERUM 4.5 MMOL/L (3.5-5.1); SODIUM LEVEL 139 MMOL/L (136-145); THYROID PEROXIDASE ANTIBODY < 28.0 U/ML (<60.0); THYROID STIMULATING HORMONE 5.842 uIU/ML (0.55-4.78); TOTAL PROTEIN 6.5 G/DL (5.7-8.2); TOTAL PROTEIN 6.5 GM/DL (6.4-8.2); VITAMIN B12 LEVEL 512 PG/ML (211-911)
== END ==
LOC: M LAB 06:46
PROVIDERS: ATTEND Family Medicine
DX: N18.30 Chronic kidney disease, stage 3 unspecified (principal); E78.5 Hyperlipidemia, unspecified; I12.9 Hypertensive chronic kidney disease with stage 1 through stage 4 chronic kidney disease, or unspecified chronic kidney disease; R73.01 Impaired fasting glucose; D47.2 Monoclonal gammopathy; Z79.899 Other long term (current) drug therapy

== ENCOUNTER → 2022-12-07 | Outpatient (CLI) | payer MEDICARE ==
[2022-12-07 07:33] LABS: HEMOGLOBIN A1c 6.6 % (4.0-6.0)
[2022-12-07 07:45] LABS: ALBUMIN 3.5 G/DL (3.2-5.2); BILIRUBIN,TOTAL 0.7 MG/DL (0.3-1.2); CHOLESTEROL RISK RATIO 3.6 (<5); CREATININE FOR GFR 1.37 MG/DL (0.70-1.30); GLOMERULAR FILTRATION RATE 52.6 (>35); MAGNESIUM LEVEL 1.8 MG/DL (1.8-2.4); POTASSIUM SERUM 4.8 MMOL/L (3.5-5.1); TOTAL PROTEIN 6.5 G/DL (5.7-8.2)
[2022-12-07 07:46] LABS: IMMUNOGLOBULIN M 328.6 MG/DL (50-300); THYROID STIMULATING HORMONE 6.339 uIU/ML (0.55-4.78)
[2022-12-07 07:47] LABS: FREE T4 1.08 NG/DL (0.89-1.76)
[2022-12-10 20:07] LABS: FREE KAPPA LIGHT CHAINS SERUM 20.5 mg/L (3.3-19.4); FREE LAMBDA LIGHT CHAINS SERUM 70.8 mg/L (5.7-26.3); KAPPA/LAMBDA RATIO SERUM 0.29 (0.26-1.65)
== END ==
LOC: M LAB 06:32
PROVIDERS: ATTEND Family Medicine
DX: D47.2 Monoclonal gammopathy (principal); N18.30 Chronic kidney disease, stage 3 unspecified; R73.01 Impaired fasting glucose; Z79.899 Other long term (current) drug therapy

== ENCOUNTER → 2022-12-17 | Outpatient (REF) | payer MEDICARE | LOC: M SFHCPLAZ 12:11 | PROVIDERS: ATTEND Family Medicine | DX: L50.9 Urticaria, unspecified (principal); I48.0 Paroxysmal atrial fibrillation; D47.2 Monoclonal gammopathy; R73.01 Impaired fasting glucose; Z53.9 Procedure and treatment not carried out, unspecified reason ==

== ENCOUNTER → 2023-01-10 | Outpatient (CLI) | payer MEDICARE ==
[2023-01-10 06:50] LABS: HEMATOCRIT 44.7 % (42.0-52.0); HEMOGLOBIN 14.5 g/dl (13.5-17.5); MEAN CORPUSCULAR HEMOGLOBIN 31.5 pg (27.0-33.0); MEAN CORPUSCULAR HGB CONC 32.4 g/dl (32.0-36.5); MEAN CORPUSCULAR VOLUME 97.2 fl (80.0-96.0); PLATELET COUNT, AUTOMATED 311 10^3/uL (150-450); WHITE BLOOD COUNT 10.8 10^3/uL (4.0-10.0)
[2023-01-10 07:14] LABS: ALBUMIN 3.5 G/DL (3.2-5.2); BILIRUBIN,TOTAL 0.7 MG/DL (0.3-1.2); CALCIUM LEVEL 9.2 MG/DL (8.3-10.6); CHOLESTEROL RISK RATIO 3.54 (<5); CREATININE FOR GFR 1.37 MG/DL (0.70-1.30); GLOMERULAR FILTRATION RATE 52.6 (>35); HDL CHOLESTEROL 41.7 MG/DL (>40); LDL CHOLESTEROL 86.7 MG/DL (<100); MAGNESIUM LEVEL 1.9 MG/DL (1.8-2.4); NON-HDL-C 106.3 MG/DL; POTASSIUM SERUM 4.6 MMOL/L (3.5-5.1); TOTAL PROTEIN 6.8 G/DL (5.7-8.2)
[2023-01-10 07:16] LABS: THYROID STIMULATING HORMONE 6.457 uIU/ML (0.55-4.78)
== END ==
LOC: M LAB 06:19 → M PLALAB 06:19
PROVIDERS: ATTEND Physician Assistant
DX: I48.0 Paroxysmal atrial fibrillation (principal); E78.00 Pure hypercholesterolemia, unspecified; I11.9 Hypertensive heart disease without heart failure; R91.8 Other nonspecific abnormal finding of lung field

== ENCOUNTER → 2023-06-10 | Outpatient (CLI) | payer MEDICARE ==
[2023-06-10 08:31] LABS: BASO # 0.1 10^3/uL (0.0-0.2); BASO % 0.8 % (0.0-1.0); EOS # 1.1 10^3/uL (0.0-0.5); EOS % 11.1 % (0.0-3.0); HEMATOCRIT 43.7 % (42.0-52.0); LYMPH # 1.4 10^3/uL (1.5-5.0); LYMPH % 14.4 % (24.0-44.0); MEAN CORPUSCULAR HEMOGLOBIN 30.3 pg (27.0-33.0); MEAN CORPUSCULAR VOLUME 94.6 fl (80.0-96.0); MONO # 0.9 10^3/uL (0.0-0.8); NEUTROPHILS # 6.4 10^3/uL (1.5-8.5); NEUTROPHILS % 64.3 % (36.0-66.0); PLATELET COUNT, AUTOMATED 346 10^3/uL (150-450); RED BLOOD COUNT 4.62 10^6/uL (4.30-6.10); WHITE BLOOD COUNT 9.9 10^3/uL (4.0-10.0)
[2023-06-11 05:22] LABS: ALBUMIN 3.1 G/DL (3.2-5.2); BILIRUBIN,TOTAL 0.6 MG/DL (0.3-1.2); CALCIUM LEVEL 9.6 MG/DL (8.3-10.6); CREATININE FOR GFR 1.28 MG/DL (0.70-1.30); GLOMERULAR FILTRATION RATE 56.7 (>35); POTASSIUM SERUM 4.8 MMOL/L (3.5-5.1); PTH INTACT 41.6 PG/ML (18.5-88.0); TOTAL PROTEIN 6.8 G/DL (5.7-8.2)
== END ==
LOC: M LAB 07:28
PROVIDERS: ATTEND Family Medicine
DX: D47.2 Monoclonal gammopathy (principal); I48.0 Paroxysmal atrial fibrillation; R73.01 Impaired fasting glucose

== ENCOUNTER → 2023-07-24 | Outpatient (CLI) | payer MEDICARE ==
[2023-07-24 08:29] LABS: THYROID STIMULATING HORMONE 4.289 uIU/ML (0.55-4.78)
== END ==
LOC: M RAD 07:11
PROVIDERS: ATTEND Physician Assistant
DX: I48.0 Paroxysmal atrial fibrillation (principal); J90 Pleural effusion, not elsewhere classified

== ENCOUNTER → 2023-08-26 | Outpatient (CLI) | payer MEDICARE | LOC: M LAB 06:26 | PROVIDERS: ATTEND Urology | DX: R97.21 Rising PSA following treatment for malignant neoplasm of prostate (principal) ==

== ENCOUNTER → 2023-10-15 | Outpatient (CLI) | payer MEDICARE ==
[2023-10-15 07:13] LABS: BASO # 0.1 10^3/uL (0.0-0.2); BASO % 0.5 % (0.0-1.0); EOS # 0.9 10^3/uL (0.0-0.5); EOS % 9.2 % (0.0-3.0); HEMATOCRIT 43.6 % (42.0-52.0); HEMOGLOBIN 14.4 g/dl (13.5-17.5); LYMPH # 1.4 10^3/uL (1.5-5.0); LYMPH % 14.8 % (24.0-44.0); MEAN CORPUSCULAR HEMOGLOBIN 31.3 pg (27.0-33.0); MEAN CORPUSCULAR VOLUME 94.8 fl (80.0-96.0); MONO # 0.9 10^3/uL (0.0-0.8); MONO % 9.5 % (2.0-8.0); NEUTROPHILS # 6.1 10^3/uL (1.5-8.5); NEUTROPHILS % 65.7 % (36.0-66.0); PLATELET COUNT, AUTOMATED 320 10^3/uL (150-450); WHITE BLOOD COUNT 9.3 10^3/uL (4.0-10.0)
[2023-10-15 07:44] LABS: FREE T4 1.13 NG/DL (0.89-1.76); VITAMIN B12 LEVEL 441 PG/ML (211-911)
[2023-10-15 07:56] LABS: ALBUMIN 3.1 G/DL (3.2-5.2); ALKALINE PHOSPHATASE 181 U/L (46-116); ALT/SGPT 30 U/L (7.0-40); AST/SGOT 26 U/L (<34); BILIRUBIN,TOTAL 0.7 MG/DL (0.3-1.2); BLOOD UREA NITROGEN 34 MG/DL (9-23); CALCIUM LEVEL 9.5 MG/DL (8.3-10.6); CARBON DIOXIDE LEVEL 27 MMOL/L (20-31); CHLORIDE LEVEL 108 MMOL/L (98-107); CHOLESTEROL LEVEL 139 MG/DL (<200); CHOLESTEROL RISK RATIO 3.75 (<5); CREATININE FOR GFR 1.19 MG/DL (0.70-1.30); GLOMERULAR FILTRATION RATE > 60.0 (>35); GLUCOSE, FASTING 122 MG/DL (74-106); LDL CHOLESTEROL 87.6 MG/DL (<100); POTASSIUM SERUM 4.8 MMOL/L (3.5-5.1); SODIUM LEVEL 139 MMOL/L (136-145); TOTAL PROTEIN 6.8 G/DL (5.7-8.2); TRIGLYCERIDES LEVEL 72 MG/DL (<150)
[2023-10-15 08:47] LABS: HEMOGLOBIN A1c 6.4 % (4.0-6.0)
[2023-10-17 15:08] LABS: FREE LAMBDA LIGHT CHAINS SERUM 100.7 mg/L (5.7-26.3); KAPPA/LAMBDA RATIO SERUM 0.4 (0.26-1.65); SOLUBLE TRANSFERRIN RECEPTOR 19.4 nmol/L (12.2-27.3)
== END ==
LOC: M LAB 06:28
PROVIDERS: ATTEND Family Medicine
DX: D47.2 Monoclonal gammopathy (principal); E03.8 Other specified hypothyroidism; E11.9 Type 2 diabetes mellitus without complications

== ENCOUNTER → 2023-10-18 | Outpatient (REF) | payer MEDICARE | LOC: M SFHCPLAZ 13:45 | PROVIDERS: ATTEND Family Medicine | DX: N18.31 Chronic kidney disease, stage 3a (principal); E55.9 Vitamin D deficiency, unspecified; D47.2 Monoclonal gammopathy ==

== ENCOUNTER → 2023-12-24 | Outpatient (REF) | payer MEDICARE | LOC: M SFHCPLAZ 13:06 | PROVIDERS: ATTEND Student in an Organized Health Care Education/Training Program | DX: M79.89 Other specified soft tissue disorders (principal) ==

== ENCOUNTER → 2023-12-24 | Outpatient (CLI) | payer MEDICARE | LOC: M PLAIMG 12:27 | PROVIDERS: ATTEND Student in an Organized Health Care Education/Training Program | DX: M79.89 Other specified soft tissue disorders (principal); J91.8 Pleural effusion in other conditions classified elsewhere; I50.32 Chronic diastolic (congestive) heart failure ==

== ENCOUNTER → 2023-12-30 | Outpatient (CLI) | payer MEDICARE ==
[2023-12-30 07:03] LABS: BASO # 0.1 10^3/uL (0.0-0.2); BASO % 0.6 % (0.0-1.0); EOS # 0.9 10^3/uL (0.0-0.5); EOS % 9.6 % (0.0-3.0); HEMATOCRIT 42.5 % (42.0-52.0); HEMOGLOBIN 13.6 g/dl (13.5-17.5); LYMPH # 0.8 10^3/uL (1.5-5.0); LYMPH % 8.2 % (24.0-44.0); MEAN CORPUSCULAR HEMOGLOBIN 30.5 pg (27.0-33.0); MEAN CORPUSCULAR VOLUME 95.3 fl (80.0-96.0); MONO % 10.4 % (2.0-8.0); NEUTROPHILS # 6.9 10^3/uL (1.5-8.5); NEUTROPHILS % 70.8 % (36.0-66.0); PLATELET COUNT, AUTOMATED 313 10^3/uL (150-450); RED BLOOD COUNT 4.46 10^6/uL (4.30-6.10); WHITE BLOOD COUNT 9.7 10^3/uL (4.0-10.0)
[2023-12-30 07:20] LABS: PTH INTACT 52.7 PG/ML (18.5-88.0)
[2023-12-30 07:22] LABS: FERRITIN 56.8 NG/ML (10.5-307.3)
== END ==
LOC: M LAB 06:01
PROVIDERS: ATTEND Family Medicine
DX: E55.9 Vitamin D deficiency, unspecified (principal); D47.2 Monoclonal gammopathy; Z86.39 Personal history of other endocrine, nutritional and metabolic disease

== ENCOUNTER → 2023-12-31 | Outpatient (REF) | payer MEDICARE | LOC: M SFHCPLAZ 12:03 | PROVIDERS: ATTEND Student in an Organized Health Care Education/Training Program | DX: N18.31 Chronic kidney disease, stage 3a (principal); I51.89 Other ill-defined heart diseases ==

== ENCOUNTER → 2024-01-06 | Outpatient (CLI) | payer MEDICARE ==
[2024-01-06 07:48] LABS: ALBUMIN 3.1 G/DL (3.2-5.2); BILIRUBIN,TOTAL 0.9 MG/DL (0.3-1.2); CALCIUM LEVEL 9.6 MG/DL (8.3-10.6); CREATININE FOR GFR 1.36 MG/DL (0.70-1.30); GLOMERULAR FILTRATION RATE 52.9 (>35); POTASSIUM SERUM 4.3 MMOL/L (3.5-5.1); TOTAL PROTEIN 7.1 G/DL (5.7-8.2)
== END ==
LOC: M LAB 06:37
PROVIDERS: ATTEND Student in an Organized Health Care Education/Training Program
DX: N18.31 Chronic kidney disease, stage 3a (principal); I51.89 Other ill-defined heart diseases; I50.32 Chronic diastolic (congestive) heart failure

== ENCOUNTER → 2024-01-28 | Outpatient (CLI) | payer MEDICARE | LOC: M SLEEP HO 01-23 11:08 | PROVIDERS: ATTEND Student in an Organized Health Care Education/Training Program | DX: G47.33 Obstructive sleep apnea (adult) (pediatric) (principal); I48.0 Paroxysmal atrial fibrillation ==

== ENCOUNTER → 2024-02-05 | Outpatient (CLI) | payer MEDICARE | LOC: M PLAIMG 14:45 | PROVIDERS: ATTEND Physician Assistant | DX: I50.9 Heart failure, unspecified (principal) ==

== ENCOUNTER → 2024-02-19 | Outpatient (CLI) | payer MEDICARE ==
[2024-02-19 07:59] LABS: ALBUMIN 3.1 G/DL (3.2-5.2); ALKALINE PHOSPHATASE 168 U/L (46-116); ALT/SGPT 32 U/L (7.0-40); AST/SGOT 27 U/L (<34); BILIRUBIN,TOTAL 0.8 MG/DL (0.3-1.2); BLOOD UREA NITROGEN 29 MG/DL (9-23); CALCIUM LEVEL 9.8 MG/DL (8.3-10.6); CARBON DIOXIDE LEVEL 25 MMOL/L (20-31); CHLORIDE LEVEL 104 MMOL/L (98-107); CHOLESTEROL LEVEL 130 MG/DL (<200); CREATININE FOR GFR 1.13 MG/DL (0.70-1.30); GLOMERULAR FILTRATION RATE > 60.0 (>35); GLUCOSE, FASTING 126 MG/DL (74-106); HDL CHOLESTEROL 40.5 MG/DL (>40); LDL CHOLESTEROL 75.5 MG/DL (<100); NON-HDL-C 89.5 MG/DL; POTASSIUM SERUM 4.5 MMOL/L (3.5-5.1); PTH INTACT 44.3 PG/ML (18.5-88.0); SODIUM LEVEL 135 MMOL/L (136-145); TOTAL PROTEIN 6.9 G/DL (5.7-8.2); TRIGLYCERIDES LEVEL 70 MG/DL (<150)
[2024-02-19 08:00] LABS: THYROID STIMULATING HORMONE 4.226 uIU/ML (0.55-4.78)
[2024-02-19 08:01] LABS: FERRITIN 49.8 NG/ML (10.5-307.3); FREE T4 1.15 NG/DL (0.89-1.76); HEMOGLOBIN A1c 6.9 % (4.0-6.0); VITAMIN B12 LEVEL 509 PG/ML (211-911)
[2024-02-20 06:57] LABS: PROTEIN, TOTAL SO 7.2 g/dL (6.1-8.1)
[2024-02-24 07:38] LABS: ALBUMIN SO 3.2 g/dL (3.8-4.8); ALPHA 1 GLOBULINS SO 0.4 g/dL (0.2-0.3); BETA 2 GLOBULIN SO 0.6 g/dL (0.2-0.5); BETA GLOBULIN SO 0.5 g/dL (0.4-0.6); GAMMA GLOBULINS SO 1.5 g/dL (0.8-1.7); SPEP IFE ABN PROTEIN BAND 1 0.6 g/dL (NONE DETECTED); SPEP IFE ABN PROTEIN BAND 2 0.5 g/dL (NONE DETECTED)
== END ==
LOC: M LAB 06:13
PROVIDERS: ATTEND Family Medicine
DX: E11.9 Type 2 diabetes mellitus without complications (principal); N18.31 Chronic kidney disease, stage 3a; I50.32 Chronic diastolic (congestive) heart failure; E03.8 Other specified hypothyroidism; D50.9 Iron deficiency anemia, unspecified; D47.2 Monoclonal gammopathy

== ENCOUNTER → 2024-06-29 | Outpatient (CLI) | payer MEDICARE ==
[2024-06-29 08:16] LABS: HEMOGLOBIN 15.2 g/dl (13.5-17.5); MEAN CORPUSCULAR HEMOGLOBIN 31.8 pg (27.0-33.0); MEAN CORPUSCULAR VOLUME 96.2 fl (80.0-96.0); PLATELET COUNT, AUTOMATED 309 10^3/uL (150-450); RED BLOOD COUNT 4.78 10^6/uL (4.30-6.10); WHITE BLOOD COUNT 8.1 10^3/uL (4.0-10.0)
[2024-06-29 08:42] LABS: BLOOD UREA NITROGEN 26 MG/DL (9-23); CALCIUM LEVEL 9.9 MG/DL (8.3-10.6); CARBON DIOXIDE LEVEL 29 MMOL/L (20-31); CHLORIDE LEVEL 108 MMOL/L (98-107); CREATININE FOR GFR 1.15 MG/DL (0.70-1.30); GLOMERULAR FILTRATION RATE > 60.0 (>35); GLUCOSE, FASTING 137 MG/DL (74-106); POTASSIUM SERUM 4.9 MMOL/L (3.5-5.1); SODIUM LEVEL 140 MMOL/L (136-145)
== END ==
LOC: M LAB 07:16
PROVIDERS: ATTEND Physician Assistant
DX: I48.19 Other persistent atrial fibrillation (principal)

== ENCOUNTER → 2024-07-15 | Outpatient (CLI) | payer MEDICARE ==
[2024-07-15 07:37] LABS: BASO # 0.1 10^3/uL (0.0-0.2); BASO % 0.8 % (0.0-1.0); EOS # 0.8 10^3/uL (0.0-0.5); EOS % 11.5 % (0.0-3.0); HEMATOCRIT 42.9 % (42.0-52.0); HEMOGLOBIN 14.5 g/dl (13.5-17.5); LYMPH # 1.1 10^3/uL (1.5-5.0); LYMPH % 15.3 % (24.0-44.0); MEAN CORPUSCULAR HEMOGLOBIN 31.9 pg (27.0-33.0); MEAN CORPUSCULAR HGB CONC 33.8 g/dl (32.0-36.5); MEAN CORPUSCULAR VOLUME 94.3 fl (80.0-96.0); MONO # 0.6 10^3/uL (0.0-0.8); MONO % 8.3 % (2.0-8.0); NEUTROPHILS # 4.7 10^3/uL (1.5-8.5); NEUTROPHILS % 63.8 % (36.0-66.0); PLATELET COUNT, AUTOMATED 286 10^3/uL (150-450); RED BLOOD COUNT 4.55 10^6/uL (4.30-6.10); WHITE BLOOD COUNT 7.3 10^3/uL (4.0-10.0)
[2024-07-15 07:52] LABS: ALBUMIN 3.3 G/DL (3.2-5.2); ALKALINE PHOSPHATASE 157 U/L (40-129); ALT/SGPT 26 U/L (7.0-40); AST/SGOT 23 U/L (<34); BILIRUBIN,TOTAL 0.6 MG/DL (0.3-1.2); BLOOD UREA NITROGEN 36 MG/DL (9-23); CALCIUM LEVEL 9.9 MG/DL (8.3-10.6); CARBON DIOXIDE LEVEL 24 MMOL/L (20-31); CHLORIDE LEVEL 107 MMOL/L (98-107); CREATININE FOR GFR 1.16 MG/DL (0.70-1.30); GLOMERULAR FILTRATION RATE > 60.0 (>35); GLUCOSE, FASTING 142 MG/DL (74-106); POTASSIUM SERUM 4.5 MMOL/L (3.5-5.1); SODIUM LEVEL 137 MMOL/L (136-145)
[2024-07-15 07:56] LABS: FERRITIN 38.4 NG/ML (10.5-307.3)
[2024-07-15 07:57] LABS: TOTAL 25(OH) VITAMIN D 51.4 NG/ML (20.0-100.0)
[2024-07-15 08:00] LABS: HEMOGLOBIN A1c 6.9 % (4.0-6.0)
[2024-07-17 13:57] LABS: FREE KAPPA LIGHT CHAINS SERUM 26.6 mg/L (3.3-19.4); FREE LAMBDA LIGHT CHAINS SERUM 87.9 mg/L (5.7-26.3); KAPPA/LAMBDA RATIO SERUM 0.3 (0.26-1.65)
== END ==
LOC: M LAB 06:20
PROVIDERS: ATTEND Family Medicine
DX: E11.22 Type 2 diabetes mellitus with diabetic chronic kidney disease (principal); I50.32 Chronic diastolic (congestive) heart failure; N18.31 Chronic kidney disease, stage 3a; D47.3 Essential (hemorrhagic) thrombocythemia; E55.9 Vitamin D deficiency, unspecified

== ENCOUNTER → 2024-09-03 | Outpatient (CLI) | payer MEDICARE | LOC: M LAB 08:51 | PROVIDERS: ATTEND Urology | DX: R97.21 Rising PSA following treatment for malignant neoplasm of prostate (principal) ==

== ENCOUNTER → 2025-03-11 | Outpatient (CLI) | payer MEDICARE ==
[~2025-03-11] MED LIST changes: -AMIO200T49 PO; +AMIO200T54 PO; +ASPI81TA26 PO; +CEFD1CAP9 PO; +D 1010002 PO; +LACT20EL PO; +MIRA3350 PO; +SENN1TAB85 PO; +SPIR-10 PO; +TAMS-18 PO
== END ==
LOC: M LAB 09:59
PROVIDERS: ATTEND Urology
DX: R97.21 Rising PSA following treatment for malignant neoplasm of prostate (principal)

== ENCOUNTER → 2025-03-31 | Outpatient (CLI) | payer MEDICARE ==
[2025-03-31 09:16] LABS: BASO # 0.1 10^3/uL (0.0-0.2); BASO % 0.6 % (0.0-1.0); EOS # 0.7 10^3/uL (0.0-0.5); EOS % 8.7 % (0.0-3.0); LYMPH # 1.1 10^3/uL (1.5-5.0); LYMPH % 13.2 % (24.0-44.0); MONO # 0.8 10^3/uL (0.0-0.8); MONO % 9.8 % (2.0-8.0); NEUTROPHILS # 5.5 10^3/uL (1.5-8.5); NEUTROPHILS % 67.3 % (36.0-66.0); PLATELET COUNT, AUTOMATED 307 10^3/uL (150-450)
[2025-03-31 09:43] LABS: ALT/SGPT 17.0 U/L (7.0-40); AST/SGOT 23.0 U/L (<34); CALCIUM LEVEL 9.9 MG/DL (8.3-10.6); CARBON DIOXIDE LEVEL 28.0 MMOL/L (20-31); CHLORIDE LEVEL 106.0 MMOL/L (98-107); CREATININE FOR GFR 1.2 MG/DL (0.70-1.30); GLOMERULAR FILTRATION RATE 58.5 (>35); MAGNESIUM LEVEL 1.9 MG/DL (1.8-2.4); POTASSIUM SERUM 4.7 MMOL/L (3.5-5.1); SODIUM LEVEL 141.0 MMOL/L (136-145)
[2025-03-31 09:44] LABS: PTH INTACT 58.2 PG/ML (18.5-88.0)
[2025-03-31 09:46] LABS: TOTAL 25(OH) VITAMIN D 50.8 NG/ML (20.0-100.0)
[2025-03-31 10:01] LABS: ESTIMATED AVERAGE GLUCOSE 157.0 MG/DL (60-110)
[2025-03-31 10:03] LABS: CA19-9 TUMOR MARKER,CARBOHYDRA 1.7 U/ML (<35.0)
[2025-04-01 09:42] LABS: PROTEIN, TOTAL SO 6.8 g/dL (6.1-8.1)
[2025-04-02 12:18] LABS: INSULIN LEVEL 6.0 uIU/mL (<=18.4)
[2025-04-06 07:46] LABS: ALBUMIN SO 3.7 g/dL (3.8-4.8); ALPHA 1 GLOBULINS SO 0.3 g/dL (0.2-0.3); ALPHA 2 GLOBULINS SO 0.9 g/dL (0.5-0.9); BETA 2 GLOBULIN SO 0.4 g/dL (0.2-0.5); BETA GLOBULIN SO 0.5 g/dL (0.4-0.6); GAMMA GLOBULINS SO 1.1 g/dL (0.8-1.7); SPEP IFE ABN PROTEIN BAND 1 0.4 g/dL (NONE DETECTED); SPEP IFE ABN PROTEIN BAND 2 0.5 g/dL (NONE DETECTED)
== END ==
LOC: M LAB 08:22
PROVIDERS: ATTEND Family Medicine
DX: E55.9 Vitamin D deficiency, unspecified (principal); D50.9 Iron deficiency anemia, unspecified; E11.9 Type 2 diabetes mellitus without complications; D47.2 Monoclonal gammopathy; I50.32 Chronic diastolic (congestive) heart failure; K86.2 Cyst of pancreas

== ENCOUNTER → 2025-04-29 | Outpatient (CLI) | payer MEDICARE ==
[2025-04-29 11:20] LABS: ALT/SGPT 21.0 U/L (7.0-40); AST/SGOT 27.0 U/L (<34); CALCIUM LEVEL 9.9 MG/DL (8.3-10.6); CARBON DIOXIDE LEVEL 29.0 MMOL/L (20-31); CHLORIDE LEVEL 102.0 MMOL/L (98-107); CHOLESTEROL LEVEL 128.0 MG/DL (<200); CHOLESTEROL RISK RATIO 3.61 (<5); CREATININE FOR GFR 1.17 MG/DL (0.70-1.30); GLOMERULAR FILTRATION RATE 60.3 (>35); LDL CHOLESTEROL 75.8 MG/DL (<100); NON-HDL-C 92.6 MG/DL; POTASSIUM SERUM 4.7 MMOL/L (3.5-5.1); SODIUM LEVEL 141.0 MMOL/L (136-145); TRIGLYCERIDES LEVEL 84.0 MG/DL (<150)
== END ==
LOC: M PLALAB 07:47
PROVIDERS: ATTEND Family Medicine
DX: I10 Essential (primary) hypertension (principal); E78.5 Hyperlipidemia, unspecified

== ENCOUNTER → 2025-05-07 | Outpatient (CLI) | payer MEDICARE ==
[~2025-05-07] MED LIST changes: +ISOVUE-370 76% 100 ML VIAL ONE
== END ==
LOC: M PLAIMG 13:49
PROVIDERS: ATTEND Family Medicine
DX: K86.2 Cyst of pancreas (principal)
CPT/HCPCS: 74160; Q9967